=== PATIENT | female | born 1970 | race Caucasian/White ===

== ENCOUNTER 2020-08-15 19:00 | Inpatient (IN) ==
[2020-08-15] MEDS ORDERED: KETOROLAC TROMETHAMINE 15 MG/ML VIAL IV STA ×2 (19:54→22:01)
[2020-08-15] MEDS ORDERED: SODIUM CHLORIDE 0.9% 1000ML 1,000 ML IV ONE (19:54)
[2020-08-15 20:50] LABS: INR 1.1 (0.9-1.1); Partial Thromboplastin Time 25.6 Seconds (21.0-31.0); Prothrombin Time 11.1 Seconds (9.0-12.0)
[2020-08-15 20:57] LABS: Alanine Aminotransferase 12 U/L (12-78); Aspartate Aminotransferase 45 U/L (15-37); Blood Urea Nitrogen 4 mg/dl (7-18); Calcium 8.3 mg/dl (8.5-10.1); Carbon Dioxide 27 mmol/L (21-32); Chloride 102 mmol/L (98-107); Creatinine Clr Calc Pharmacy 91.5 ml/min; Est GFR (African American) 102.7; Est GFR (Non-African American) 88.6; Glucose 224 mg/dl (70-99); Lipase 133 U/L (73-393); Magnesium 1.7 mg/dl (1.8-2.4); Potassium 2.8 mmol/L (3.5-5.1); Sodium 136 mmol/L (136-145)
[2020-08-15 21:02] LABS: Albumin Globulin Ratio 0.5 (0.9-2); Alkaline Phosphatase 150 U/L (45-117); Globulin 5.6 gm/dl (2.5-4.0); Total Protein 8.6 gm/dl (6.4-8.2); Troponin I < 0.015 ng/ml (0-0.045)
[2020-08-15 21:37] LABS: Pregnancy Test, Serum Negative (Negative)
[2020-08-15 21:38] LABS: Hematocrit (blood only) 32.1 % (37-47); Hemoglobin 10.7 g/dL (12.0-16.0); Mean Corpuscular Hemoglobin 25.8 pg (25-34); Mean Corpuscular Hgb Conc 33.3 g/dL (32-36); Mean Corpuscular Volume 77.5 fL (80-100); Mean Platelet Volume 9.2 fL (7.4-10.4); Platelet Count 72 K/uL (130-400); RDW Coefficient of Variation 14.9 % (11.5-14.5); RDW Standard Deviation 42.5 fL (36.4-46.3); Red Blood Count 4.14 M/uL (4.2-5.4); White Blood Count 2.38 K/uL (4.8-10.8)
[2020-08-15 21:39] LABS: Lymphocytes % (auto) 29.4 %; Monocytes # (auto) 0.13 K/uL (0.11-0.59); Monocytes % (auto) 5.5 %; Neutrophils # (auto) 1.55 K/uL (1.4-6.5); Neutrophils % (auto) 65.1 %; Platelet Estimate Decreased (Normal)
[2020-08-15] MEDS ORDERED: OPTIRAY 320 125ml IV ONE (21:51)
[2020-08-15] MEDS ORDERED: POTASSIUM CHLORIDE CRTAB 20 MEQ TABCR PO STA (22:01)
[2020-08-15] MEDS ORDERED: MAGNESIUM SULFATE / D5W 1 GM/100 ML BAG IV STA (22:01)
--- NOTE | 2020-08-15 22:17 | Emergency Department Note ---
Impression & Plan COVID-19, Hypokalemia, Hypomagnesemia ED Provider Note Provider: Dominic Kellogg MD DATE OF SERVICE: 08/15/2020 CHIEF COMPLAINT: Shortness of breath, chest pain HISTORY OF PRESENT ILLNESS: Patient is a 50-year-old female presenting today complaining of cough fever shortness of breath little bit of chest discomfort decreased appetite nausea vomiting and diarrhea. Patient states symptoms sta rted 8 days ago and she was tested this past Thursday with a positive result reported to her on Thursday for coronavirus. Patient states her daughter is also ill but doing well at home. Patient states that she felt a bit better over the weekend from the initial URI type symptoms but got worse over the last day or so with again complaints of some chest discomfort shortness of breath, decreased appetite, nausea vomiting and diarrhea. States she has a little pain to the left side of her chest and some shortness of breath worse with exertion. Significant fatigue worse with any kind of activity.. Patient endorses nausea and vomiting and diarrhea. Reports she has been having some intermittent fe vers. Denies any syncope or falls. Has been wanting her pulse ox at home and states it has gotten as low as 92% resting. Patient denies significant abdominal pain but endorses some myalgias diffusely. Has intermittently been using some Motrin and Tylenol several days ago but has not been eating much so did not take much today. Patient states she is quite anxious about how she is doing and her infection. States she believes she got the coronavirus from her daughter's friend came to visit. Daughter is currently staying with friends tonight as patients here at the hospital. REVIEW OF SYSTEMS: A total of 10 review of systems was obtained and negative except as stated above in the HPI. PAST MEDICAL HISTORY: As noted above MEDICATIONS: Denies regular prescription medications at home SOCIAL HISTORY: Distant former smoker, lives at home with daughter PHYSICAL EXAM: GENERAL: alert and oriented sitting in room appears anxious Head: normocephalic and atraumatic EYES: No injection, discharge or icterus. NECK: Trachea midline. LUNGS: Airway patent. No retractions. Breath sounds clear with good air entry bilaterally. HEART: Regular tachycardic rate and rhythm. No chest wall tenderness ABDOMEN: Soft and non-tender, without guarding or rebound. SKIN: Acyanotic, warm, dry, without rashes EXTREMITIES: Without swelling, tenderness or deformity NEUROLOGICAL: No focal deficits. No aphasia. No facial droop or slurred speech. Ambulatory. EK beats minute sinus tachycardia. No PVC. No acute ST segment elevation. There is a lead III and aVF T wave inversion as well as some nonspecific anterior T wave changes. QTc 492. CONTINUOUS CARDIAC MONITORING: was ordered and showed a heart rate of 100-120 bpm in sinus tachycardia at times descending into the mid 90s and a normal sinus rhythm Patient's laboratory studies and imaging reviewed. Differential includes Reactive airway disease, pneumonia, pneumothorax, COPD, CHF, infections, cardiac ischemia, pulmonary embolism, musculoskeletal, gastrointestinal, as well as other pathologies. IMPRESSION/MEDICAL DECISION MAKING: Patient symptoms seem consistent with COVID-19. Imaging was obtained given her tachycardia and complaint of some chest discomfort proceed directly to a CTA to exclude PE. No evidence of this. The radiology report but infiltrative changes consistent with viral pneumonia. Laboratory studies also consistent with that with some thrombocytopenia, leukopenia noted. Hypokalemia and hypomagnesemia were interestingly noted today as well. Given some oral and IV supplementation of this. Given some Toradol to help with some chest discomfort as well as some IV fluid. Troponin is negative and EKG without significant ischemic changes and doubt acute ACS. negative. No evidence of acute hepatitis or pancreatitis based on laboratory studies. Benign abdomen do not believe any did acute imaging here. Patient not significant hypoxic here with sats in the mid 90s. Patient is quite anxious however and heart rates however in the 90s to 100s. Discussed with the patient findings. Do not believe antibiotics are indicated at this point. Discussed with her some supplementation for the electrolyte abnormalities and discussed options of going home with close observation of her symptoms. Extensive discussion regarding pros and cons of this and anticipatory guidance regarding course of COVID-19. After extensive discussion the patient was quite anxious and states she still felt quite unwell and unsafe going home. Patient states that she felt as if she would possibly not wake up if she went to sleep and requested further observation here at the hospital. Discussed with the hospitalist for possible further observation here in the hospital. DIAGNOSIS: COVID-19 pneumonia, chest pain, hypokalemia, hypomagnesemia DISPOSITION: Hospitalist will evaluate Patient was agreeable with this plan. Preliminary Findings Only See Final Report For Complete Findings CTA CHEST: No evidence of acute pulmonary embolism. No thoracic aortic aneurysm. No pericardial effusion. Widespread and patchy bilateral ground-glass infiltrates, likely viral pneumonia. No pleural effusion or pneumothorax. Hepatosplenomegaly. No acute osseous findings. Radiologist: Oracio Harris M.D. Study ready at 22:01 and initial results transmitted at 22:03 Past Med/Surg History Social History (System 07/07/18 @ 13:26 by Alana Clark) Smoking Status: Never smoker Feels Safe at Home: Yes Allergies Allergies Allergy/AdvReac Type Severity Reaction Status Date / Time No Known Allergies Allergy Verified 08/15/20 23:57 Home Meds Home Medications Medication Instructions Recorded Confirmed azithromycin 250 mg PO DIRECTED 08/15/20 08/15/20 ibuprofen 400 mg PO Q6H PRN 08/15/20 08/15/20 Results & Data (ED) Vital Signs Vital Signs - 24 hr 08/15/20 19:09 08/15/20 19:48 08/15/20 20:21 Temperature 37.1 C Temperature Source Temporal Artery Scan Pulse Rate 112 H 107 H 105 H Pulse Rate [Apical] Pulse Rate from SpO2 Sensor 107 H 105 H Respiratory Rate 18 17 19 Respiratory Effort / Characteristics Respiratory Depth Normal Respiratory Pattern Blood Pressure 147/83 H 153/80 H 146/92 H Blood Pressure Mean 104 104 110 Blood Pressure Position Lying Pulse Oximetry 94 95 95 Oxygen Delivery Method Room Air Room Air Room Air Sepsis Recent Fever Within 48 Hours No Sepsis New/Unexplained Change in Mental Status No Sepsis Action Taken by Nursing No Action Required 08/15/20 20:26 08/15/20 20:47 08/15/20 21:00 Temperature Temperature Source Pulse Rate 103 H Pulse Rate [Apical] 101 H Pulse Rate from SpO2 Sensor 104 H Respiratory Rate 14 23 Respiratory Effort / Characteristics Non-Labored Spontaneous Respiratory Depth Normal Respiratory Pattern Regular Blood Pressure 136/72 Blood Pressure Mean 93 Blood Pressure Position Pulse Oximetry 95 96 96 Oxygen Delivery Method Room Air Room Air Room Air Sepsis Recent Fever Within 48 Hours Sepsis New/Unexplained Change in Mental Status Sepsis Action Taken by Nursing 08/15/20 22:15 08/15/20 23:00 08/16/20 00:00 Temperature Temperature Source Pulse Rate 96 H 96 H 95 H Pulse Rate [Apical] Pulse Rate from SpO2 Sensor 96 H 96 H 95 H Respiratory Rate 23 18 19 Respiratory Effort / Characteristics Respiratory Depth Respiratory Pattern Blood Pressure 114/89 108/87 123/72 Blood Pressure Mean 97 94 89 Blood Pressure Position Pulse Oximetry 97 94 94 Oxygen Delivery Method Room Air Room Air Room Air Sepsis Recent Fever Within 48 Hours Sepsis New/Unexplained Change in Mental Status Sepsis Action Taken by Nursing Laboratory Data Result diagrams: 08/15/20 21:05 08/15/20 20:26 Lab Results 08/15/20 08/15/20 08/15/20 Range/Units 20:26 20:26 20:26 WBC Cancelled RBC Cancelled Hgb Cancelled Hct Cancelled MCV Cancelled MCH Cancelled MCHC Cancelled RDW Std Deviation Cancelled RDW Coeff of Radha Cancelled Plt Count Cancelled MPV Cancelled Immature Gran % (Auto) Cancelled Neut % (Auto) Cancelled Lymph % (Auto) Cancelled [place] % (Auto) Cancelled Eos % (Auto) Cancelled Baso % (Auto) Cancelled Neut # (Auto) Cancelled Lymph # (Auto) Cancelled [place] # (Auto) Cancelled Eos # (Auto) Cancelled Baso # (Auto) Cancelled Immature Gran # (Auto) Cancelled Absolute Nucleated RBC Cancelled Nucleated RBC % (auto) Cancelled Neutrophils % (Manual) Cancelled Band Neutrophils % Cancelled Lymphocytes % (Manual) Cancelled Prolymphocyte % Cancelled Reactive Lymphs % (Man) Cancelled Monocytes % (Manual) Cancelled Eosinophils % (Manual) Cancelled Basophils % (Manual) Cancelled Metamyelocytes % (Man) Cancelled Myelocytes % (Man) Cancelled Promyelocytes % (Man) Cancelled Blast Cells % (Manual) Cancelled Plasma Cell % (Manual) Cancelled Other Cells % Cancelled Nucleated RBC % Cancelled Neutrophils # (Manual) Cancelled Band Neutrophils # Cancelled Total Absolute Neuts Cancelled Lymphocytes # (Manual) Cancelled Prolymphocyte # Cancelled Reactive Lymphs # Cancelled Total Abs Lymphocytes Cancelled Monocytes # (Manual) Cancelled Eosinophils # (Manual) Cancelled Basophils # (Manual) Cancelled Metamyelocytes # (Man) Cancelled Myelocytes # (Manual) Cancelled Promyelocytes # (Man) Cancelled Blast Cells # (Man) Cancelled Plasma Cell # (Manual) Cancelled Other Cells # Cancelled Nucleated RBCs # (Man) Cancelled Hypersegmented Neuts Cancelled Hyposegmented Neuts Cancelled Hypogranular Neuts Cancelled Large Granular Lymphs Cancelled # Lrg Granular Lymphs Cancelled Hairy Cells Cancelled Smudge Cells Cancelled Toxic Granulation Cancelled Toxic Vacuolation Cancelled Dohle Bodies Cancelled Kavitha Rods Cancelled Platelet Estimate Cancelled Hypogranular Platelets Cancelled Clumped Platelets Cancelled Giant Platelets Cancelled Platelet Satelliting Cancelled RBC Morphology Cancelled Polychromasia Cancelled Hypochromasia Cancelled Poikilocytosis Cancelled Basophilic Stippling Cancelled Anisocytosis Cancelled Microcytosis Cancelled Macrocytosis Cancelled Spherocytes Cancelled Pappenheimer Bodies Cancelled Sickle Cells Cancelled Target Cells Cancelled Tear Drop Cells Cancelled Ovalocytes Cancelled Stomatocytes Cancelled Bermudez-Lincroft Bodies Cancelled Echinocytes Cancelled Acanthocytes (Spur) Cancelled Rouleaux Cancelled RBC Agglutinates Cancelled Schistocytes Cancelled RBC Morph Comment Cancelled Sezary Cell Cancelled PT 11.1 (9.0-12.0) Seconds INR 1.1 (0.9-1.1) APTT 25.6 (21.0-31.0) Seconds PTT Ratio 1.0 Sodium 136 (136-145) mmol/L Potassium 2.8 L (3.5-5.1) mmol/L Chloride 102 (98-107) mmol/L Carbon Dioxide 27 (21-32) mmol/L Anion Gap 7.0 (3-11) BUN 4 L (7-18) mg/dl Creatinine 0.78 (0.6-1.2) mg/dl Est Cr Clr Drug Dosing 91.5 ml/min Est GFR ( Amer) 102.7 Est GFR (Non-Af Amer) 88.6 BUN/Creatinine Ratio 5.0 L (10-20) Glucose 224 H (70-99) mg/dl Calcium 8.3 L (8.5-10.1) mg/dl Magnesium 1.7 L (1.8-2.4) mg/dl Total Bilirubin 1.0 (0.2-1) mg/dl AST 45 H (15-37) U/L ALT 12 (12-78) U/L Alkaline Phosphatase 150 H (45-117) U/L Troponin I < 0.015 (0-0.045) ng/ml Total Protein 8.6 H (6.4-8.2) gm/dl Albumin 3.0 L (3.4-5.0) gm/dl Globulin 5.6 H (2.5-4.0) gm/dl Albumin/Globulin Ratio 0.5 L (0.9-2) Lipase 133 (73-393) U/L HCG, Qual (Negative) 08/15/20 08/15/20 Range/Units 21:05 21:05 WBC 2.38 L RBC 4.14 L Hgb 10.7 L Hct 32.1 L MCV 77.5 L MCH 25.8 MCHC 33.3 RDW Std Deviation 42.5 RDW Coeff of Radha 14.9 H Plt Count 72 L MPV 9.2 Immature Gran % (Auto) 0.0 Neut % (Auto) 65.1 Lymph % (Auto) 29.4 [place] % (Auto) 5.5 Eos % (Auto) 0.0 Baso % (Auto) 0.0 Neut # (Auto) 1.55 Lymph # (Auto) 0.70 L [place] # (Auto) 0.13 Eos # (Auto) 0.00 Baso # (Auto) 0.00 Immature Gran # (Auto) 0.00 Absolute Nucleated RBC Nucleated RBC % (auto) Neutrophils % (Manual) Band Neutrophils % Lymphocytes % (Manual) Prolymphocyte % Reactive Lymphs % (Man) Monocytes % (Manual) Eosinophils % (Manual) Basophils % (Manual) Metamyelocytes % (Man) Myelocytes % (Man) Promyelocytes % (Man) Blast Cells % (Manual) Plasma Cell % (Manual) Other Cells % Nucleated RBC % Neutrophils # (Manual) Band Neutrophils # Total Absolute Neuts Lymphocytes # (Manual) Prolymphocyte # Reactive Lymphs # Total Abs Lymphocytes Monocytes # (Manual) Eosinophils # (Manual) Basophils # (Manual) Metamyelocytes # (Man) Myelocytes # (Manual) Promyelocytes # (Man) Blast Cells # (Man) Plasma Cell # (Manual) Other Cells # Nucleated RBCs # (Man) Hypersegmented Neuts Hyposegmented Neuts Hypogranular Neuts Large Granular Lymphs # Lrg Granular Lymphs Hairy Cells Smudge Cells Toxic Granulation Toxic Vacuolation Dohle Bodies Kavitha Rods Platelet Estimate Decreased L Hypogranular Platelets Clumped Platelets Giant Platelets Platelet Satelliting RBC Morphology Polychromasia Hypochromasia Poikilocytosis Basophilic Stippling Anisocytosis Microcytosis Macrocytosis Spherocytes Pappenheimer Bodies Sickle Cells Target Cells Tear Drop Cells Ovalocytes Stomatocytes Bermudez-Lincroft Bodies Echinocytes Acanthocytes (Spur) Rouleaux RBC Agglutinates Schistocytes RBC Morph Comment Sezary Cell PT (9.0-12.0) Seconds INR (0.9-1.1) APTT (21.0-31.0) Seconds PTT Ratio Sodium (136-145) mmol/L Potassium (3.5-5.1) mmol/L Chloride (98-107) mmol/L Carbon Dioxide (21-32) mmol/L Anion Gap (3-11) BUN (7-18) mg/dl Creatinine (0.6-1.2) mg/dl Est Cr Clr Drug Dosing ml/min Est GFR ( Amer) Est GFR (Non-Af Amer) BUN/Creatinine Ratio (10-20) Glucose (70-99) mg/dl Calcium (8.5-10.1) mg/dl Magnesium (1.8-2.4) mg/dl Total Bilirubin (0.2-1) mg/dl AST (15-37) U/L ALT (12-78) U/L Alkaline Phosphatase (45-117) U/L Troponin I (0-0.045) ng/ml Total Protein (6.4-8.2) gm/dl Albumin (3.4-5.0) gm/dl Globulin (2.5-4.0) gm/dl Albumin/Globulin Ratio (0.9-2) Lipase (73-393) U/L HCG, Qual Negative (Negative) Administered Medications Discontinued Medications Diphenhydramine HCl (Diphenhydramine 50 Mg/Ml Vial) 25 mg IV NOW STA Stop: 08/15/20 22:51 Last Admin: 08/15/20 23:12 Dose: 25 mg Documented by: [id number] Sodium Chloride (Nss 1000ml) 1,000 mls @ 999 mls/hr IV .Q1H1M ONE Stop: 08/15/20 20:54 Last Infusion: 08/15/20 21:18 Dose: 0 mls/hr Documented by: [id number] Admin: 08/15/20 20:21 Dose: 999 mls/hr Documented by: [id number] Magnesium Sulfate/Dextrose (Magnesium Sulfate / D5w) 1 gm in 100 mls @ 100 mls/hr IV NOW STA Stop: 08/15/20 23:00 Last Infusion: 08/15/20 23:19 Dose: 0 mls/hr Documented by: [id number] Admin: 08/15/20 22:09 Dose: 100 mls/hr Documented by: [id number] Potassium Chloride (K Tony / Wtr) 10 meq in 100 mls @ 100 mls/hr IV ONE ONE Stop: 08/15/20 23:46 Last Admin: 08/15/20 23:13 Dose: 100 mls/hr Documented by: [id number] Sodium Chloride (Nss 1000ml) 500 mls @ 999 mls/hr IV .Q31M ONE Stop: 08/15/20 23:17 Last Admin: 08/15/20 23:15 Dose: 999 mls/hr Documented by: [id number] Famotidine (Pepcid 20mg Iv Push) 20 mg in 5 mls @ 2.5 mls/min IV NOW STA Stop: 08/15/20 22:51 Last Admin: 08/15/20 23:12 Dose: 2.5 mls/min Documented by: [id number] Ioversol (Optiray 320 125ml) 119 ml IV ONCE ONE Stop: 08/15/20 21:52 Last Admin: 08/15/20 21:52 Dose: 119 ml Documented by: [id number] Ketorolac Tromethamine (Ketorolac Tromethamine 15 Mg/Ml Vial) 15 mg IV NOW STA Stop: 08/15/20 19:55 Last Admin: 08/15/20 20:22 Dose: 15 mg Documented by: [id number] Ketorolac Tromethamine (Ketorolac Tromethamine 15 Mg/Ml Vial) 15 mg IV NOW STA Stop: 08/15/20 22:02 Last Admin: 08/15/20 22:10 Dose: 15 mg Documented by: [id number] Ondansetron HCl (Ondansetron Inj 2 Mg/Ml 2 Ml Vial) 4 mg IV NOW STA Stop: 08/15/20 22:48 Last Admin: 08/15/20 23:12 Dose: 4 mg Documented by: [id number] Potassium Chloride (Potassium Chloride Crtab 20 Meq Tabcr) 40 meq PO NOW STA Stop: 08/15/20 22:02 Last Admin: 08/15/20 22:09 Dose: 40 meq Documented by: [id number] Discharge Plan Visit Data Chief Complaint: Shortness of Breath/Dyspnea Stated Complaint: SOB, COV + 08/10 ED Provider: Dominic Kellogg Discharge Problem: COVID-19, Hypokalemia, Hypomagnesemia Forms Stand Alone Forms: [facility] Prescriptions Prescriptions: No Action azithromycin 250 mg tablet 250 mg PO DIRECTED RF: 0 ibuprofen 200 mg Tablet 400 mg PO Q6H PRN (Reason: FEVER/PAIN) RF: 0
[2020-08-15] MEDS ORDERED: SODIUM CHLORIDE 0.9% 1000ML 500 ML IV ONE (22:47)
[2020-08-15] MEDS ORDERED: ONDANSETRON INJ 2 MG/ML 2 ML VIAL IV STA (22:47)
[2020-08-15] MEDS ORDERED: POTASSIUM CHLORIDE / WTR 10 MEQ/100 ML PLCT IV ONE (22:47)
[2020-08-15] MEDS ORDERED: FAMOTIDINE 20MG IV PUSH 20 MG/5 ML SYR IV STA (22:50)
[2020-08-15] MEDS ORDERED: diphenhydrAMINE 50 MG/ML VIAL IV STA (22:50)
--- NOTE | 2020-08-16 00:58 | History & Physical Report ---
Date of Service August 16, 2020 Assessment & Plan (1) COVID-19: Patient on day 8 of symptoms. Was diagnosed 5 days ago. States her symptoms improved then began to worsen again 2 days ago. She has cough and SOB as well as nausea and diarrhea. No loss of taste or smell. Labs significant for pancytopenia, leukopenia as well as electrolyte disturbances as below. She is not hypoxic, no supplemental O2 at this time. -Observation to medical -Check Procalcitonin -Maintain isolation precautions -Monitor oxygenation. No need for steroid treatment at this time. Patient is on day 8 of symptoms and would not benefit from Remdesivir or plasma at this time -Lovenox 40 BID Present on Admission?: Yes (2) Hypokalemia: K=2.8. Given 50mEq in ER -Will give 40 mEq -Repeat chemistry in AM Present on Admission?: Yes (3) Hypomagnesemia: Mg = 1.7. Administered 1gm in ER -Will administer additional 1gm -Repeat Mg in AM Present on Admission?: Yes (4) Pancytopenia: Patient with pancytopenia, Plt=72. No prior records for comparison. ?if secondary to Covid-19 viral illness. She also has HSM noted on CT -Follow CBC -No additional viral tests at this time. Continue to follow Present on Admission?: Yes (5) Hyperglycemia: Vok=578. No diagnosis of DM previously. Patient denies polyuria/polydipsia/polyphagia -Check HgBA1C -BSG checks qAC, qHS F/E/N - IVF in ER. Electrolytes as above. CC diet as tolerated Ppx - Lovenox BID Code - Full Dispo - Observation to medical with isolation precautions Present on Admission?: Yes History of Present Illness Chief Complaint: SOB Primary Care Provider: HUSSAIN Ronquillo 50yo female with Covid-19. Sx began 8 days ago - body aches, dry cough, SOB, nausea and diarrhea. Improved but started worsening again 2 days ago Some CP and abdominal pain No loss of taste or smell Concerned because her pulse ox at home was 92% Pulse ox has been acceptable here No additional complaints. She is quite anxious, concerned that she "is going to tonight" Allergies Allergy/AdvReac Type Severity Reaction Status Date / Time No Known Allergies Allergy Verified 08/15/20 23:57 Home Medications Medication Instructions Recorded Confirmed Type azithromycin 250 mg PO DIRECTED 08/15/20 08/15/20 History ibuprofen 400 mg PO Q6H PRN 08/15/20 08/15/20 History Past Med/Surg History Medical History (Updated 08/16/20 @ 01:12 by Sharon Owens DO) No significant past medical history Surgical History (Updated 08/16/20 @ 01:12 by Sharon Owens DO) No significant past surgical history Family History (Updated 08/16/20 @ 01:11 by Sharon Owens DO) Other No significant family history Social History (Updated 08/16/20 @ 01:11 by Sharon Owens DO) Smoking Status: Never smoker Hx Alcohol Use: No Hx Substance Use: No Feels Safe at Home: Yes Physical Exam Physical Exam: General: patient resting comfortably, NAD, non-toxic in appearance, AA&O x 4 Skin: warm, dry, intact, no rashes or lesions HEENT: NC/AT, PERRL, EOMI, anicteric sclera, conjunctiva without injection, external ear normal to inspection and nontender, nares patent, slightly dry mucus membranes, dentition intact, no oropharyngeal lesions, neck supple, tra jh midline, no LAD, no thyromegaly, no JVD Heart: +S1/S2, regular, no m/r/g Abd: +BS, soft, mildly tender, ND, no masses/organomegaly/ascites Ext: warm, 2+ pulses in UE/LE bilaterally, no clubbing/cyanosis or edema Neuro: nonfocal, patient AA&O x 4, speech intact, no facial droop, moving all extremities on command with equal strength 5/5 Results & Data Results & Data ([facility]) Vital Signs (Past 12 Hours) Vital Signs Temp Pulse Pulse Resp BP Pulse Ox 08/16/20 00:00 95 H 19 123/72 94 08/15/20 23:00 96 H 18 108/87 94 08/15/20 22:15 96 H 23 114/89 97 08/15/20 21:00 103 H 23 136/72 96 08/15/20 20:47 101 H 14 96 08/15/20 20:26 95 08/15/20 20:21 105 H 19 146/92 H 95 08/15/20 19:48 107 H 17 153/80 H 95 08/15/20 19:09 37.1 C 112 H 18 147/83 H 94 Laboratory Results Lab Results 08/15/20 08/15/20 08/15/20 Range/Units 20:26 20:26 20:26 WBC Cancelled RBC Cancelled Hgb Cancelled Hct Cancelled MCV Cancelled MCH Cancelled MCHC Cancelled RDW Std Deviation Cancelled RDW Coeff of Radha Cancelled Plt Count Cancelled MPV Cancelled Immature Gran % (Auto) Cancelled Neut % (Auto) Cancelled Lymph % (Auto) Cancelled [place] % (Auto) Cancelled Eos % (Auto) Cancelled Baso % (Auto) Cancelled Neut # (Auto) Cancelled Lymph # (Auto) Cancelled [place] # (Auto) Cancelled Eos # (Auto) Cancelled Baso # (Auto) Cancelled Immature Gran # (Auto) Cancelled Absolute Nucleated RBC Cancelled Nucleated RBC % (auto) Cancelled Neutrophils % (Manual) Cancelled Band Neutrophils % Cancelled Lymphocytes % (Manual) Cancelled Prolymphocyte % Cancelled Reactive Lymphs % (Man) Cancelled Monocytes % (Manual) Cancelled Eosinophils % (Manual) Cancelled Basophils % (Manual) Cancelled Metamyelocytes % (Man) Cancelled Myelocytes % (Man) Cancelled Promyelocytes % (Man) Cancelled Blast Cells % (Manual) Cancelled Plasma Cell % (Manual) Cancelled Other Cells % Cancelled Nucleated RBC % Cancelled Neutrophils # (Manual) Cancelled Band Neutrophils # Cancelled Total Absolute Neuts Cancelled Lymphocytes # (Manual) Cancelled Prolymphocyte # Cancelled Reactive Lymphs # Cancelled Total Abs Lymphocytes Cancelled Monocytes # (Manual) Cancelled Eosinophils # (Manual) Cancelled Basophils # (Manual) Cancelled Metamyelocytes # (Man) Cancelled Myelocytes # (Manual) Cancelled Promyelocytes # (Man) Cancelled Blast Cells # (Man) Cancelled Plasma Cell # (Manual) Cancelled Other Cells # Cancelled Nucleated RBCs # (Man) Cancelled Hypersegmented Neuts Cancelled Hyposegmented Neuts Cancelled Hypogranular Neuts Cancelled Large Granular Lymphs Cancelled # Lrg Granular Lymphs Cancelled Hairy Cells Cancelled Smudge Cells Cancelled Toxic Granulation Cancelled Toxic Vacuolation Cancelled Dohle Bodies Cancelled Kavitha Rods Cancelled Platelet Estimate Cancelled Hypogranular Platelets Cancelled Clumped Platelets Cancelled Giant Platelets Cancelled Platelet Satelliting Cancelled RBC Morphology Cancelled Polychromasia Cancelled Hypochromasia Cancelled Poikilocytosis Cancelled Basophilic Stippling Cancelled Anisocytosis Cancelled Microcytosis Cancelled Macrocytosis Cancelled Spherocytes Cancelled Pappenheimer Bodies Cancelled Sickle Cells Cancelled Target Cells Cancelled Tear Drop Cells Cancelled Ovalocytes Cancelled Stomatocytes Cancelled Bermudez-Alamillo Bodies Cancelled Echinocytes Cancelled Acanthocytes (Spur) Cancelled Rouleaux Cancelled RBC Agglutinates Cancelled Schistocytes Cancelled RBC Morph Comment Cancelled Sezary Cell Cancelled PT 11.1 (9.0-12.0) Seconds INR 1.1 (0.9-1.1) APTT 25.6 (21.0-31.0) Seconds PTT Ratio 1.0 Sodium 136 (136-145) mmol/L Potassium 2.8 L (3.5-5.1) mmol/L Chloride 102 (98-107) mmol/L Carbon Dioxide 27 (21-32) mmol/L Anion Gap 7.0 (3-11) BUN 4 L (7-18) mg/dl Creatinine 0.78 (0.6-1.2) mg/dl Est Cr Clr Drug Dosing 91.5 ml/min Est GFR ( Amer) 102.7 Est GFR (Non-Af Amer) 88.6 BUN/Creatinine Ratio 5.0 L (10-20) Glucose 224 H (70-99) mg/dl Calcium 8.3 L (8.5-10.1) mg/dl Magnesium 1.7 L (1.8-2.4) mg/dl Total Bilirubin 1.0 (0.2-1) mg/dl AST 45 H (15-37) U/L ALT 12 (12-78) U/L Alkaline Phosphatase 150 H (45-117) U/L Troponin I < 0.015 (0-0.045) ng/ml Total Protein 8.6 H (6.4-8.2) gm/dl Albumin 3.0 L (3.4-5.0) gm/dl Globulin 5.6 H (2.5-4.0) gm/dl Albumin/Globulin Ratio 0.5 L (0.9-2) Lipase 133 (73-393) U/L HCG, Qual (Negative) 08/15/20 08/15/20 Range/Units 21:05 21:05 WBC 2.38 L RBC 4.14 L Hgb 10.7 L Hct 32.1 L MCV 77.5 L MCH 25.8 MCHC 33.3 RDW Std Deviation 42.5 RDW Coeff of Radha 14.9 H Plt Count 72 L MPV 9.2 Immature Gran % (Auto) 0.0 Neut % (Auto) 65.1 Lymph % (Auto) 29.4 [place] % (Auto) 5.5 Eos % (Auto) 0.0 Baso % (Auto) 0.0 Neut # (Auto) 1.55 Lymph # (Auto) 0.70 L [place] # (Auto) 0.13 Eos # (Auto) 0.00 Baso # (Auto) 0.00 Immature Gran # (Auto) 0.00 Absolute Nucleated RBC Nucleated RBC % (auto) Neutrophils % (Manual) Band Neutrophils % Lymphocytes % (Manual) Prolymphocyte % Reactive Lymphs % (Man) Monocytes % (Manual) Eosinophils % (Manual) Basophils % (Manual) Metamyelocytes % (Man) Myelocytes % (Man) Promyelocytes % (Man) Blast Cells % (Manual) Plasma Cell % (Manual) Other Cells % Nucleated RBC % Neutrophils # (Manual) Band Neutrophils # Total Absolute Neuts Lymphocytes # (Manual) Prolymphocyte # Reactive Lymphs # Total Abs Lymphocytes Monocytes # (Manual) Eosinophils # (Manual) Basophils # (Manual) Metamyelocytes # (Man) Myelocytes # (Manual) Promyelocytes # (Man) Blast Cells # (Man) Plasma Cell # (Manual) Other Cells # Nucleated RBCs # (Man) Hypersegmented Neuts Hyposegmented Neuts Hypogranular Neuts Large Granular Lymphs # Lrg Granular Lymphs Hairy Cells Smudge Cells Toxic Granulation Toxic Vacuolation Dohle Bodies Kavitha Rods Platelet Estimate Decreased L Hypogranular Platelets Clumped Platelets Giant Platelets Platelet Satelliting RBC Morphology Polychromasia Hypochromasia Poikilocytosis Basophilic Stippling Anisocytosis Microcytosis Macrocytosis Spherocytes Pappenheimer Bodies Sickle Cells Target Cells Tear Drop Cells Ovalocytes Stomatocytes Bermudez-Alamillo Bodies Echinocytes Acanthocytes (Spur) Rouleaux RBC Agglutinates Schistocytes RBC Morph Comment Sezary Cell PT (9.0-12.0) Seconds INR (0.9-1.1) APTT (21.0-31.0) Seconds PTT Ratio Sodium (136-145) mmol/L Potassium (3.5-5.1) mmol/L Chloride (98-107) mmol/L Carbon Dioxide (21-32) mmol/L Anion Gap (3-11) BUN (7-18) mg/dl Creatinine (0.6-1.2) mg/dl Est Cr Clr Drug Dosing ml/min Est GFR ( Amer) Est GFR (Non-Af Amer) BUN/Creatinine Ratio (10-20) Glucose (70-99) mg/dl Calcium (8.5-10.1) mg/dl Magnesium (1.8-2.4) mg/dl Total Bilirubin (0.2-1) mg/dl AST (15-37) U/L ALT (12-78) U/L Alkaline Phosphatase (45-117) U/L Troponin I (0-0.045) ng/ml Total Protein (6.4-8.2) gm/dl Albumin (3.4-5.0) gm/dl Globulin (2.5-4.0) gm/dl Albumin/Globulin Ratio (0.9-2) Lipase (73-393) U/L HCG, Qual Negative (Negative) Diagnostic Findings CTA - No evidence of acute PE. No thoracic aortic aneurysm. No pericardial effusion. Widespread and patchy bilateral ground-glass infiltrates, likely viral PNA. No pleural efffusion or PTX. Hepatosplenomegaly. No acute osseous findings. Code Status & VTE Plan VTE Prophylaxis Plan VTE Prophylaxis will be ordered: Yes PG Care Time/CCT Total # of Minutes Spent Total Time Spent with Patient: Total time spent is greater than 50% in coordination of care (as documented) at patient's floor/unit and/or counseling patient: Coding Level of Care Code 80904 OBS Care - Level 2 Diagnoses COVID-19 U07.1 Hypokalemia E87.6 Hypomagnesemia E83.42 Pancytopenia D61.818 Hyperglycemia R73.9
[2020-08-16] MEDS ORDERED: GLUCOSE 10 TABS/TUBE PO PRN (02:20)
[2020-08-16] MEDS ORDERED: GLUCAGON FOR INJ 1 MG VIAL SQ PRN (02:20)
[2020-08-16] MEDS ORDERED: GLUCOSE 40% GEL 15 GM TUBE PO PRN (02:20)
[2020-08-16] MEDS ORDERED: POTASSIUM CHLORIDE CRTAB 20 MEQ TABCR PO STA (02:20)
[2020-08-16] MEDS ORDERED: CARBOHYDRATES FOR HYPOGLYCEMIA PO PRN (02:20)
[2020-08-16] MEDS ORDERED: DEXTROSE 50% 50 ML SYRINGE IV PRN (02:20)
[2020-08-16] MEDS ORDERED: MAGNESIUM SULFATE / D5W 1 GM/100 ML BAG IV ONE (02:20)
[2020-08-16] MEDS ORDERED: INFLUENZA ADMINISTRATION CHARGE ONE (02:36)
[2020-08-16] MEDS ORDERED: INFLUENZA VIRUS QUAD VACCINE 0.5 ML SYR IM ONE (02:36)
[2020-08-16 03:20] LABS: Appearance Urine Clear (Clear); Bacteria Urine Automated Negative (Negative); Bilirubin Urine Negative (Negative); Blood Urine 3+ (Negative); Color Urine Orange; Epithelial Cell Urine Auto >30 /lpf (0-5); Glucose Urine UA Negative (Negative); Ketones Urine Negative (Negative); Leukocyte Esterase Urine Trace (Negative); Nitrite Urine Negative (Negative); Protein Urine Trace (Negative); RBC Urine Automated >30 /hpf (0-4); Specific Gravity Urine > 1.045 (1.000-1.030); Urobilinogen Urine Negative (Negative); pH Urine 6.5 (4.5-7.5)
[2020-08-16 03:52] LABS: Phosphorus 1.6 mg/dl (2.5-4.9)
--- NOTE | 2020-08-16 07:49 | CT Scan Report ---
CHEST CTA for PULMONARY ARTERIES CT DOSE: 548.44 mGy.cm HISTORY: Positive Covid. Shortness of breath. Atypical chest pain. TECHNIQUE: Multiaxial CT images of the chest were performed following the intravenous administration of contrast to evaluate the pulmonary arteries. Maximal intensity projection images were also obtaine d. A dose lowering technique was utilized adhering to the principles of ALARA. COMPARISON STUDY: None. FINDINGS: Normal caliber thoracic aorta with no evidence for dissection. The heart is normal in size. No pleural or pericardial effusions. No filling defects within the pulmonary arteries to suggest pul monary embolus. Mild mediastinal and bilateral hilar lymphadenopathy. This may be reactive. Hepatic s teatosis. Hepatosplenomegaly. This is partially imaged on this study. No fractures within the visuali zed osseous structures. No pneumothorax. The central airways are patent. Scattered multifocal patchy groundglass airspace opacity seen throughout the lungs. This is consistent with a moderate viral pneu monia. IMPRESSION: 1. No evidence for pulmonary embolus. 2. Moderate multifocal patchy groundglass airspace opacities seen throughout the lungs. This favors a viral pneumonia. 3. Mild hepatosplenomegaly. 4. Hepatic steatosis. 5. Mild mediastinal and bilateral hilar lymphadenopathy. This is likely reactive. ACT 112: Negative or not required by law. Electronically signed by: Timmy Morales M.D. 08/16/2020 7:47 AM
[2020-08-16 08:10] LABS: Magnesium 2.4 mg/dl (1.8-2.4)
[2020-08-16] MEDS: ENOXAPARIN INJ 40 MG/0.4 ML SYR SQ SCH ×2 (08:42→20:21)
[2020-08-16 08:50] LABS: Estimated Average Glucose 269 mg/dl
[2020-08-16] MEDS: BENZONATATE 100 MG CAPSULE PO PRN (09:20)
[2020-08-16] MEDS: ACETAMINOPHEN 325 MG TAB PO PRN ×3 (09:20→20:13)
[2020-08-16 12:17] LABS: Albumin Level 2.7 gm/dl (3.4-5.0); BUN Creatinine Ratio 7.2 (10-20); Bilirubin Direct 0.3 mg/dl (0-0.2); Calcium 7.6 mg/dl (8.5-10.1); Creatinine Clr Calc Pharmacy 111.5 ml/min; Est GFR (African American) 120.6; Est GFR (Non-African American) 104.1
[2020-08-16 12:20] LABS: Bilirubin,Total 0.9 mg/dl (0.2-1); Total Protein 7.9 gm/dl (6.4-8.2)
[2020-08-16] MEDS ORDERED: INSULIN GLARGINE SOLOSTAR 100 UNITS/ML 3 ML PEN SC ONE (14:00)
[2020-08-16] MEDS: POTASSIUM CHLORIDE CRTAB 20 MEQ TABCR PO SCH ×2 (14:54→20:21)
--- NOTE | 2020-08-16 16:48 | Electrocardiogram Report ---
Test Reason : Blood Pressure : / mmHG Vent. Rate : 109 BPM Atrial Rate : 109 BPM P-R Int : 138 ms QRS Dur : 082 ms QT Int : 366 ms P-R-T Axes : 046 035 003 degrees QTc Int : 492 ms Sinus tachycardia Abnormal ECG No previous ECGs available Confirmed by Eladio Olmos ([id number]) on 08/16/2020 4:48:03 PM Referred By: REFERRED SELF Confirmed By:Shaun Olmos
[2020-08-16] MEDS: INSULIN ASPART 100 UNITS/ML 3 ML PEN SC SCH ×2 (17:54→21:32)
[2020-08-16] MEDS: NSS + 20MEQ KCL 20 MEQ/1,000 ML BAG IV SCH (18:00)
[2020-08-16] MEDS: POT PHOSPHATE MONOBASIC W/ SOD TAB PO SCH ×2 (18:04→20:15)
[2020-08-16] MEDS: busPIRone 5 MG TAB PO PRN (23:42)
[2020-08-16] MEDS: guaiFENesin 600 MG TABCR PO PRN (23:42)
[2020-08-17] MEDS: ACETAMINOPHEN 325 MG TAB PO PRN ×3 (00:21→13:13)
[2020-08-17] MEDS: NSS + 20MEQ KCL 20 MEQ/1,000 ML BAG IV SCH ×3 (02:17→20:22)
--- NOTE | 2020-08-17 06:24 | Hospitalist Progress Note ---
Date of Service August 16, 2020 Assessment & Plan (1) Pneumonia due to 2019 novel coronavirus: thus far is NOT hypoxic/requiring NC O2. deferring on steroids/plasma/remdesivir. continue aggressive pulmonary toilet. flutter valve/incentive nichole. self-proning encouraged. low threshold for steroids with any clinical worsening or hypoxia. (2) Pancytopenia: 2nd to COVID-19 infection? other? check TSH, b12, folate to be complete. underlying liver disease should be considered if LFT abnormalities and pancytopenia persist. no evidence of myeloproliferative disease based on imaging. daily CBC. (3) Hypomagnesemia: replaced and resolved (4) Hypokalemia: replace with PO and IV K bmp am (5) Diabetes mellitus type 2, uncontrolled: new diagnosis nutrition consult DM education consult start lantus 15 units daily start novolog supplemental/correction/carb coverage adjust as needed (6) Hypophosphatemia: replace with oral K-phos neutral (7) Anxiety: buspar prn (8) Hepatosplenomegaly: could be 2nd to COVID-19 infection could be primary liver disease ultimately will need dedicated abd u/s trend her LFTs (9) DVT prophylaxis: due to higher risk of VTE with COVID use lovenox 40mg BID father updated by phone today change to full admission status not eating/drinking - add IV fluids Admission and Anticipated Discharge Date Admission Date: August 16, 2020 Subjective patient continues with cough - mainly dry, occasional production. diarrhea persists. no vomiting. some nausea. appetite remains poor. she is thirsty. did have chest tightness - improved since laying on her side. no abd pain. h/o pre-DM dx 2-3 years ago but no f/u with PCP since then. no fevers. fatigue is severe. 13yo daughter had COVID at same time as her. Review of Systems Constitutional: + fatigue, + weakness and + anorexia; no fever Respiratory: no dyspnea Cardiovascular: no chest pain and no edema Gastrointestinal: no abdominal pain Musculoskeletal: no myalgia Psychiatric: + anxiety Physical Exam Constitutional: + obese; no acute distress and no altered mental status ENMT: Mouth: + dry oral mucous membranes Respiratory: no respiratory distress Auscultation: + diminished lung sounds (bases) and + crackles (bases) Cardiovascular: Rate/Rhythm: regular rate and regular rhythm Heart Sounds: normal S1 and normal S2; no murmur Vessels: posterior tibial pulses present and dorsalis pedis pulses present; no JVD Extremities: no edema Gastrointestinal (Abdomen): Percussion/Palpation: abdomen soft and + hepatomegaly; abdomen nontender, no guarding and no splenomegaly Skin: no rashes, warm and dry Psychiatric: Orientation: alert and oriented x 3 Affect: + tearful affect Results & Data Results & Data ([facility]) Vital Signs (Past 12 Hours) Vital Signs Temp Pulse Resp BP Pulse Ox 08/16/20 21:20 37.4 C 94 H 16 129/85 91 Laboratory Results Laboratory Results - last 24 hr 08/16/20 08/16/20 08/16/20 06:41 06:41 06:41 Sodium Potassium Chloride Carbon Dioxide Anion Gap BUN Creatinine Est Cr Clr Drug Dosing Est GFR ( Amer) Est GFR (Non-Af Amer) BUN/Creatinine Ratio Glucose POC Glucose Estimat Average Glucose 269 Hemoglobin A1c 11.0 H Calcium Magnesium 2.4 Total Bilirubin Direct Bilirubin AST ALT Alkaline Phosphatase NT-Pro-B Natriuret Pep 51 Total Protein Albumin Procalcitonin < 0.05 08/16/20 08/16/20 08/16/20 06:42 08:32 12:15 Sodium 139 Potassium 3.0 L Chloride 108 H Carbon Dioxide 25 Anion Gap 7.0 BUN 5 L Creatinine 0.64 Est Cr Clr Drug Dosing 111.5 Est GFR ( Amer) 120.6 Est GFR (Non-Af Amer) 104.1 BUN/Creatinine Ratio 7.2 L Glucose 164 H POC Glucose 176 H 204 H Estimat Average Glucose Hemoglobin A1c Calcium 7.6 L Magnesium Total Bilirubin 0.9 Direct Bilirubin 0.3 H AST 38 H ALT 11 L Alkaline Phosphatase 128 H NT-Pro-B Natriuret Pep Total Protein 7.9 Albumin 2.7 L Procalcitonin 08/16/20 08/16/20 17:30 21:18 Sodium Potassium Chloride Carbon Dioxide Anion Gap BUN Creatinine Est Cr Clr Drug Dosing Est GFR ( Amer) Est GFR (Non-Af Amer) BUN/Creatinine Ratio Glucose POC Glucose 144 H 122 H Estimat Average Glucose Hemoglobin A1c Calcium Magnesium Total Bilirubin Direct Bilirubin AST ALT Alkaline Phosphatase NT-Pro-B Natriuret Pep Total Protein Albumin Procalcitonin PG Care Time/CCT Total # of Minutes Spent Total Time Spent with Patient: Total time spent is greater than 50% in coordination of care (as documented) at patient's floor/unit and/or counseling patient: Coding Level of Care Code 84588 Subseq Hosp Care Lvl 3 Diagnoses Pneumonia due to 2019 novel coronavirus U07.1; J12.82 Pancytopenia D61.818 Hypomagnesemia E83.42 Hypokalemia E87.6 Diabetes mellitus type 2, uncontrolled E11.65 Glycemic state: with hyperglycemia Hypophosphatemia E83.39 Anxiety F41.9 Hepatosplenomegaly R16.2 DVT prophylaxis Z29.9 (1) Diabetes mellitus type 2, uncontrolled Glycemic state: with hyperglycemia Qualified Code(s): E11.65 - Type 2 diabetes mellitus with hyperglycemia
[2020-08-17 07:14] LABS: Hematocrit (blood only) 33.2 % (37-47); Hemoglobin 10.8 g/dL (12.0-16.0); Mean Corpuscular Hemoglobin 25.5 pg (25-34); Mean Corpuscular Hgb Conc 32.5 g/dL (32-36); Mean Corpuscular Volume 78.5 fL (80-100); RDW Coefficient of Variation 15.5 % (11.5-14.5); RDW Standard Deviation 44.4 fL (36.4-46.3); Red Blood Count 4.23 M/uL (4.2-5.4); White Blood Count 3.39 K/uL (4.8-10.8)
[2020-08-17 07:40] LABS: Albumin Level 2.5 gm/dl (3.4-5.0); BUN Creatinine Ratio 8.1 (10-20); Bilirubin Direct 0.3 mg/dl (0-0.2); Calcium 7.2 mg/dl (8.5-10.1); Creatinine Clr Calc Pharmacy 127.4 ml/min; Est GFR (Non-African American) 108.7; Potassium 3.4 mmol/L (3.5-5.1)
[2020-08-17 07:42] LABS: Platelet Count 80 K/uL (130-400)
[2020-08-17 07:43] LABS: Bilirubin,Total 1.1 mg/dl (0.2-1); Mean Platelet Volume 9.6 fL (7.4-10.4); Total Protein 7.6 gm/dl (6.4-8.2)
[2020-08-17 07:52] LABS: Basophils # (auto) 0.01 K/uL (0-0.2); Basophils % (auto) 0.3 %; Immature Granulocytes # (auto) 0.01 K/uL (0.00-0.02); Immature Granulocytes % (auto) 0.3 %; Lymphocytes # (auto) 0.91 K/uL (1.2-3.4); Lymphocytes % (auto) 26.8 %; Monocytes # (auto) 0.13 K/uL (0.11-0.59); Monocytes % (auto) 3.8 %; Neutrophils # (auto) 2.33 K/uL (1.4-6.5); Neutrophils % (auto) 68.8 %
[2020-08-17 07:59] LABS: Folate (Folic Acid) 10.6 ng/ml (>5.38)
[2020-08-17] MEDS: INSULIN ASPART 100 UNITS/ML 3 ML PEN SC SCH ×4 (08:40→20:42)
[2020-08-17] MEDS: POT PHOSPHATE MONOBASIC W/ SOD TAB PO SCH ×4 (08:41→20:16)
[2020-08-17] MEDS: POTASSIUM CHLORIDE CRTAB 20 MEQ TABCR PO SCH (08:42)
[2020-08-17] MEDS: BENZONATATE 100 MG CAPSULE PO PRN (08:42)
[2020-08-17] MEDS: INSULIN GLARGINE SOLOSTAR 100 UNITS/ML 3 ML PEN SC SCH (09:19)
[2020-08-17] MEDS: dexAMETHasone 4 MG TAB PO SCH (10:05)
[2020-08-17] MEDS: CYANOCOBALAMIN 500 MCG TABLET (VITAMIN B-12) PO SCH (10:05)
[2020-08-17] MEDS: FAMOTIDINE 20 MG TAB PO SCH ×2 (10:05→20:16)
--- NOTE | 2020-08-17 11:30 | XRay Report ---
XR chest 1V portable CLINICAL HISTORY: COVID pneumonia, worsening dyspnea COMPARISON STUDY: CT scan dated 08/15/2020 FINDINGS: The heart is normal in size. There are multifocal pulmonary airspace opacities consistent w ith a multifocal pneumonia. There are no significant pleural effusions.[ IMPRESSION: Multifocal airspace opacities consistent with a multifocal pneumonia ACT 112: Negative or not required by law. Electronically signed by: Napoleon Acosta M.D. 08/17/2020 11:29 AM
[2020-08-17] MEDS: ENOXAPARIN INJ 40 MG/0.4 ML SYR SQ SCH ×2 (12:57→20:16)
[2020-08-17] MEDS: NYSTATIN SUSP 500,000 U/5 ML UDC PO SCH (20:16)
--- NOTE | 2020-08-17 20:34 | Hospitalist Progress Note ---
Date of Service August 17, 2020 Assessment & Plan (1) Pneumonia due to 2019 novel coronavirus: O2 sats have been fairly consistent <94%. CXR today with b/l pneumonia. Was placed on minimal amount of NC O2 today. Start decadron 6mg daily x 10 days. Patient is nearing 10 days into her illness - defer on plasma and remdesivir. Cont self-proning. Cont flutter valve. Cont incentive. Reassurance given to patient today that she overall looks good and hopefully worst is behind her. Cont supportive care. (2) Pancytopenia: 2nd to COVID-19 infection? liver disease? other? TSH, folate wnl b12 low-normal -- replace underlying liver disease should be considered if LFT abnormalities and pancytopenia persist. no evidence of myeloproliferative disease based on imaging. daily CBC. (3) Hypomagnesemia: replaced and resolved (4) Hypokalemia: ongoing replace with PO K bmp am (5) Diabetes mellitus type 2, uncontrolled: new diagnosis DM education consult appreciated increase lantus to 20 units daily adjust novolog supplemental/correction/carb coverage (6) Hypophosphatemia: cont oral K-phos neutral (7) Anxiety: buspar prn (8) Hepatosplenomegaly: could be 2nd to COVID-19 infection could be primary liver disease ultimately will need dedicated abd u/s trend her LFTs (9) B12 deficiency: start oral B12 -- 1000mcg daily (10) DVT prophylaxis: due to higher risk of VTE with COVID use lovenox 40mg BID father updated by phone today as well as yesterday can stop fluids today; appears hydrated on exam Admission and Anticipated Discharge Date Admission Date: August 16, 2020 Subjective overall feels better today she can breath more easily no ZUÑIGA less chest tightness cough - mainly dry she is trying to lay on side as much as possible and use flutter/incentive frequently diarrhea persists - multiple loose BMs today anorexia still present but drinking fluids still quite anxious and tearful Review of Systems Constitutional: + fever, + fatigue and + anorexia Ear, Nose, Mouth, Throat: no loss of taste or smell Respiratory: + cough; no wheezing Cardiovascular: no chest pain and no orthopnea Gastrointestinal: + nausea and + diarrhea/loose stools; no abdominal pain Physical Exam Constitutional: + obese; no acute distress and no altered mental status looks better today ENMT: external ear and nose normal, oropharynx normal Respiratory: no respiratory distress Auscultation: + diminished lung sounds (bases, but much improved today; better airation) and + crackles (bases - minimal ); no wheezes Cardiovascular: Rate/Rhythm: regular rate and regular rhythm Heart Sounds: normal S1 and normal S2; no murmur Vessels: posterior tibial pulses present and dorsalis pedis pulses present; no JVD Extremities: no edema Gastrointestinal (Abdomen): Percussion/Palpation: abdomen soft and + hepatomegaly; abdomen nontender, no guarding and no splenomegaly Skin: no rashes, warm and dry Psychiatric: Orientation: alert and oriented x 3 Affect: + anxious affect and + tearful affect Results & Data Results & Data ([facility]) Vital Signs (Past 12 Hours) Vital Signs Temp Pulse Resp BP Pulse Ox 08/17/20 14:05 37.2 C 95 H 18 112/70 93 08/17/20 08:36 37.9 C H 105 H 18 133/71 93 Laboratory Results Laboratory Results - last 24 hr 08/16/20 08/17/20 08/17/20 21:18 06:54 06:54 WBC 3.39 L RBC 4.23 Hgb 10.8 L Hct 33.2 L MCV 78.5 L MCH 25.5 MCHC 32.5 RDW Std Deviation 44.4 RDW Coeff of Radha 15.5 H Plt Count 80 L MPV 9.6 Immature Gran % (Auto) 0.3 Neut % (Auto) 68.8 Lymph % (Auto) 26.8 [place] % (Auto) 3.8 Eos % (Auto) 0.0 Baso % (Auto) 0.3 Neut # (Auto) 2.33 Lymph # (Auto) 0.91 L [place] # (Auto) 0.13 Eos # (Auto) 0.00 Baso # (Auto) 0.01 Immature Gran # (Auto) 0.01 Sodium 139 Potassium 3.4 L Chloride 110 H Carbon Dioxide 23 Anion Gap 7.0 BUN 5 L Creatinine 0.56 L Est Cr Clr Drug Dosing 127.4 Est GFR ( Amer) 126.0 Est GFR (Non-Af Amer) 108.7 BUN/Creatinine Ratio 8.1 L Glucose 132 H POC Glucose 122 H Calcium 7.2 L Total Bilirubin 1.1 H Direct Bilirubin 0.3 H AST 35 ALT 9 L Alkaline Phosphatase 119 H Total Protein 7.6 Albumin 2.5 L Vitamin B12 Folate TSH 08/17/20 08/17/20 08/17/20 06:54 06:54 08:39 WBC RBC Hgb Hct MCV MCH MCHC RDW Std Deviation RDW Coeff of Radha Plt Count MPV Immature Gran % (Auto) Neut % (Auto) Lymph % (Auto) [place] % (Auto) Eos % (Auto) Baso % (Auto) Neut # (Auto) Lymph # (Auto) [place] # (Auto) Eos # (Auto) Baso # (Auto) Immature Gran # (Auto) Sodium Potassium Chloride Carbon Dioxide Anion Gap BUN Creatinine Est Cr Clr Drug Dosing Est GFR ( Amer) Est GFR (Non-Af Amer) BUN/Creatinine Ratio Glucose POC Glucose 139 H Calcium Total Bilirubin Direct Bilirubin AST ALT Alkaline Phosphatase Total Protein Albumin Vitamin B12 289 Folate 10.60 TSH 2.540 08/17/20 08/17/20 12:30 16:56 WBC RBC Hgb Hct MCV MCH MCHC RDW Std Deviation RDW Coeff of Radha Plt Count MPV Immature Gran % (Auto) Neut % (Auto) Lymph % (Auto) [place] % (Auto) Eos % (Auto) Baso % (Auto) Neut # (Auto) Lymph # (Auto) [place] # (Auto) Eos # (Auto) Baso # (Auto) Immature Gran # (Auto) Sodium Potassium Chloride Carbon Dioxide Anion Gap BUN Creatinine Est Cr Clr Drug Dosing Est GFR ( Amer) Est GFR (Non-Af Amer) BUN/Creatinine Ratio Glucose POC Glucose 142 H 170 H Calcium Total Bilirubin Direct Bilirubin AST ALT Alkaline Phosphatase Total Protein Albumin Vitamin B12 Folate TSH PG Care Time/CCT Total # of Minutes Spent Total Time Spent with Patient: Total time spent is greater than 50% in coordination of care (as documented) at patient's floor/unit and/or counseling patient: Coding Level of Care Code 58180 Subseq Hosp Care Lvl 3 Diagnoses Pneumonia due to 2019 novel coronavirus U07.1; J12.82 Pancytopenia D61.818 Hypomagnesemia E83.42 Hypokalemia E87.6 Diabetes mellitus type 2, uncontrolled E11.65 Glycemic state: with hyperglycemia Hypophosphatemia E83.39 Anxiety F41.9 Hepatosplenomegaly R16.2 B12 deficiency E53.8 DVT prophylaxis Z29.9 (1) Diabetes mellitus type 2, uncontrolled Glycemic state: with hyperglycemia Qualified Code(s): E11.65 - Type 2 diabetes mellitus with hyperglycemia
[2020-08-18] MEDS: BENZONATATE 100 MG CAPSULE PO PRN ×3 (01:48→21:06)
[2020-08-18] MEDS: ACETAMINOPHEN 325 MG TAB PO PRN ×2 (01:48→21:06)
[2020-08-18] MEDS: guaiFENesin 600 MG TABCR PO PRN ×2 (01:48→21:07)
[2020-08-18 06:32] LABS: Hematocrit (blood only) 37.6 % (37-47); Hemoglobin 12.2 g/dL (12.0-16.0); Mean Corpuscular Hemoglobin 25.4 pg (25-34); Mean Corpuscular Hgb Conc 32.4 g/dL (32-36); Mean Corpuscular Volume 78.2 fL (80-100); Mean Platelet Volume 9.8 fL (7.4-10.4); Platelet Count 128 K/uL (130-400); RDW Coefficient of Variation 15.4 % (11.5-14.5); RDW Standard Deviation 44.4 fL (36.4-46.3); Red Blood Count 4.81 M/uL (4.2-5.4); White Blood Count 6.33 K/uL (4.8-10.8)
[2020-08-18 07:04] LABS: BUN Creatinine Ratio 9.4 (10-20); Calcium 7.6 mg/dl (8.5-10.1); Est GFR (African American) 122.5; Est GFR (Non-African American) 105.7; Potassium 3.2 mmol/L (3.5-5.1)
[2020-08-18 07:12] LABS: Ferritin 126.3 ng/ml (8-388)
[2020-08-18] MEDS: ENOXAPARIN INJ 40 MG/0.4 ML SYR SQ SCH ×2 (08:40→21:07)
[2020-08-18] MEDS: NYSTATIN SUSP 500,000 U/5 ML UDC PO SCH ×4 (08:40→21:06)
[2020-08-18] MEDS: INSULIN ASPART 100 UNITS/ML 3 ML PEN SC SCH ×4 (08:40→21:38)
[2020-08-18] MEDS: dexAMETHasone 4 MG TAB PO SCH (08:41)
[2020-08-18] MEDS: FAMOTIDINE 20 MG TAB PO SCH ×2 (08:41→21:07)
[2020-08-18] MEDS: POT PHOSPHATE MONOBASIC W/ SOD TAB PO SCH ×4 (08:42→21:07)
[2020-08-18] MEDS: busPIRone 5 MG TAB PO PRN ×2 (08:42→21:07)
[2020-08-18] MEDS: CYANOCOBALAMIN 500 MCG TABLET (VITAMIN B-12) PO SCH (08:43)
[2020-08-18] MEDS: INSULIN GLARGINE SOLOSTAR 100 UNITS/ML 3 ML PEN SC SCH (08:55)
[2020-08-18] MEDS: NSS + 20MEQ KCL 20 MEQ/1,000 ML BAG IV SCH (09:07)
[2020-08-18] MEDS: POTASSIUM CHLORIDE CRTAB 20 MEQ TABCR PO SCH ×3 (10:21→21:07)
--- NOTE | 2020-08-18 20:42 | Hospitalist Progress Note ---
Date of Service August 18, 2020 Assessment & Plan (1) Pneumonia due to 2019 novel coronavirus: Escalating O2 requirements. Due to inflammatory response/worsening COVID-19 pneumonia. Continue decadron 6mg daily x 10 days - today is day #2. Patient is about 11 days into her illness - defer on plasma and remdesivir. Cont self-proning. I demonstrated this to her today; she immediately reported improved breathing. Try to prone 4-5x's each day as long as possible. Cont flutter valve. Cont incentive. Check d-dimer in am. Cont supportive care. (2) Acute respiratory failure with hypoxia: 2nd COVID-19 pneumonia. Recent procal negative; defer on abx. Would recheck in the next 48 hours and low threshold to start IV abx if the procal rises. (3) Pancytopenia: WBC count improved. Hb stable. Platelets rising. 2nd to COVID-19 infection? liver disease? other? TSH, folate wnl b12 low-normal -- replace underlying liver disease should be considered if LFT abnormalities and pancytopenia persist. no evidence of myeloproliferative disease based on imaging. daily CBC. (4) Hypomagnesemia: replaced and resolved (5) Hypokalemia: ongoing cont PO replacement bmp am (6) Diabetes mellitus type 2, uncontrolled: new diagnosis DM education consult appreciated cont lantus 20 units daily add lantus 10 units HS adjust novolog supplemental/correction/carb coverage once again at discharge would use metformin 500mg BID as well (7) Hypophosphatemia: cont oral K-phos neutral check level next 48 hours (8) Anxiety: buspar prn melatonin HS prn (9) Hepatosplenomegaly: could be 2nd to COVID-19 infection could be primary liver disease ultimately will need dedicated abd u/s cont to trend her LFTs (10) B12 deficiency: started oral B12 -- 1000mcg daily (11) Candidiasis of mouth and esophagus: nystatin 5cc ac/hs swish/spit (12) DVT prophylaxis: due to higher risk of VTE with COVID - continue lovenox 40mg BID father updated by phone daily including today Admission and Anticipated Discharge Date Admission Date: August 16, 2020 Subjective patient continues with diarrhea - "pure water" - 3 stools since this am. she continues with cough and a "catch" in her central chest. she is discouraged that she is requiring more oxygen today. still with poor appetite. no vomiting. no abdominal pain. no ZUÑIGA. anxious and tearful. no fevers/chills. fatigue persists. has not proned yet. Review of Systems Constitutional: + fatigue and + anorexia; no body aches Ear, Nose, Mouth, Throat: still no loss of taste / smell Respiratory: + cough and + pain on inspiration Cardiovascular: as per Subjective / HPI; no orthopnea Gastrointestinal: no abdominal pain Integumentary: no rash Psychiatric: + abnormal sleep pattern and + anxiety Physical Exam Constitutional: + obese; no acute distress and no altered mental status ENMT: Mouth: + oral mucosal abnormality (thrush plaques on tongue ) Respiratory: no respiratory distress Auscultation: + diminished lung sounds (bases - mild ) and + crackles (bases); no wheezes Cardiovascular: Rate/Rhythm: regular rate and regular rhythm Heart Sounds: normal S1 and normal S2; no murmur Vessels: posterior tibial pulses present and dorsalis pedis pulses present; no JVD Extremities: no edema Gastrointestinal (Abdomen): Percussion/Palpation: abdomen soft and + hepatomegaly; abdomen nontender, no guarding and no splenomegaly Skin: no rashes, warm and dry Psychiatric: Orientation: alert and oriented x 3 Affect: + anxious affect and + tearful affect Results & Data Results & Data ([facility]) Vital Signs (Past 12 Hours) Vital Signs Temp Pulse Resp BP Pulse Ox 08/18/20 16:35 37.1 C 95 H 16 138/95 92 08/18/20 10:22 16 92 08/18/20 09:18 36.8 C 97 H 16 114/71 89 L Laboratory Results Laboratory Results - last 24 hr 08/17/20 08/18/20 08/18/20 20:25 05:55 05:55 WBC 6.33 RBC 4.81 Hgb 12.2 Hct 37.6 MCV 78.2 L MCH 25.4 MCHC 32.4 RDW Std Deviation 44.4 RDW Coeff of Radha 15.4 H Plt Count 128 L D MPV 9.8 Sodium 138 Potassium 3.2 L Chloride 106 Carbon Dioxide 23 Anion Gap 9.0 BUN 6 L Creatinine 0.61 Est Cr Clr Drug Dosing 117.0 Est GFR ( Amer) 122.5 Est GFR (Non-Af Amer) 105.7 BUN/Creatinine Ratio 9.4 L Glucose 159 H POC Glucose 240 H Calcium 7.6 L Iron 23 L Transferrin 227 Transferrin % Sat 7 L Ferritin 126.3 08/18/20 08/18/20 08/18/20 08:33 11:51 17:34 WBC RBC Hgb Hct MCV MCH MCHC RDW Std Deviation RDW Coeff of Radha Plt Count MPV Sodium Potassium Chloride Carbon Dioxide Anion Gap BUN Creatinine Est Cr Clr Drug Dosing Est GFR ( Amer) Est GFR (Non-Af Amer) BUN/Creatinine Ratio Glucose POC Glucose 159 H 195 H 194 H Calcium Iron Transferrin Transferrin % Sat Ferritin 08/18/20 20:29 WBC RBC Hgb Hct MCV MCH MCHC RDW Std Deviation RDW Coeff of Radha Plt Count MPV Sodium Potassium Chloride Carbon Dioxide Anion Gap BUN Creatinine Est Cr Clr Drug Dosing Est GFR ( Amer) Est GFR (Non-Af Amer) BUN/Creatinine Ratio Glucose POC Glucose 229 H Calcium Iron Transferrin Transferrin % Sat Ferritin PG Care Time/CCT Total # of Minutes Spent Total Time Spent with Patient: Total time spent is greater than 50% in coordination of care (as documented) at patient's floor/unit and/or counseling patient: Coding Level of Care Code 43112 Subseq Hosp Care Lvl 3 Diagnoses Pneumonia due to 2019 novel coronavirus U07.1; J12.82 Acute respiratory failure with hypoxia J96.01 Pancytopenia D61.818 Hypomagnesemia E83.42 Hypokalemia E87.6 Diabetes mellitus type 2, uncontrolled E11.65 Glycemic state: with hyperglycemia Hypophosphatemia E83.39 Anxiety F41.9 Hepatosplenomegaly R16.2 B12 deficiency E53.8 Candidiasis of mouth and esophagus B37.81; B37.0 DVT prophylaxis Z29.9 (1) Diabetes mellitus type 2, uncontrolled Glycemic state: with hyperglycemia Qualified Code(s): E11.65 - Type 2 diabetes mellitus with hyperglycemia
[2020-08-18] MEDS ORDERED: INSULIN GLARGINE SOLOSTAR 100 UNITS/ML 3 ML PEN SC SCH (21:00)
[2020-08-18] MEDS: MELATONIN 3 MG TAB PO SCH (21:07)
[2020-08-19 06:29] LABS: Hematocrit (blood only) 32.5 % (37-47); Hemoglobin 10.5 g/dL (12.0-16.0); Mean Corpuscular Hemoglobin 25.3 pg (25-34); Mean Corpuscular Hgb Conc 32.3 g/dL (32-36); Mean Corpuscular Volume 78.3 fL (80-100); Mean Platelet Volume 9.3 fL (7.4-10.4); Platelet Count 115 K/uL (130-400); RDW Coefficient of Variation 15.5 % (11.5-14.5); RDW Standard Deviation 44.6 fL (36.4-46.3); Red Blood Count 4.15 M/uL (4.2-5.4); White Blood Count 5.46 K/uL (4.8-10.8)
[2020-08-19 06:46] LABS: D Dimer 1460 ug/L FEU (0-500)
[2020-08-19 07:14] LABS: BUN Creatinine Ratio 18.4 (10-20); Calcium 7.4 mg/dl (8.5-10.1); Creatinine Clr Calc Pharmacy 158.6 ml/min; Est GFR (African American) 135.4; Est GFR (Non-African American) 116.8; Magnesium 2.4 mg/dl (1.8-2.4); Potassium 4.1 mmol/L (3.5-5.1)
[2020-08-19] MEDS: POT PHOSPHATE MONOBASIC W/ SOD TAB PO SCH ×4 (08:33→20:55)
[2020-08-19] MEDS: busPIRone 5 MG TAB PO PRN (08:33)
[2020-08-19] MEDS: CYANOCOBALAMIN 500 MCG TABLET (VITAMIN B-12) PO SCH (08:34)
[2020-08-19] MEDS: guaiFENesin 600 MG TABCR PO PRN (08:34)
[2020-08-19] MEDS: dexAMETHasone 4 MG TAB PO SCH (08:34)
[2020-08-19] MEDS: ENOXAPARIN INJ 40 MG/0.4 ML SYR SQ SCH ×2 (08:34→20:50)
[2020-08-19] MEDS: POTASSIUM CHLORIDE CRTAB 20 MEQ TABCR PO SCH (08:34)
[2020-08-19] MEDS: NYSTATIN SUSP 500,000 U/5 ML UDC PO SCH ×4 (08:35→20:55)
[2020-08-19] MEDS: INSULIN ASPART 100 UNITS/ML 3 ML PEN SC SCH ×4 (08:40→20:47)
[2020-08-19] MEDS: FAMOTIDINE 20 MG TAB PO SCH ×2 (08:42→20:55)
[2020-08-19] MEDS ORDERED: IPRATROPIUM BROMIDE/ALBUTEROL respimat INH INH SCH (09:10)
[2020-08-19] MEDS ORDERED: guaiFENesin 600 MG TABCR PO STA (09:12)
[2020-08-19] MEDS: INSULIN GLARGINE SOLOSTAR 100 UNITS/ML 3 ML PEN SC SCH ×2 (09:13→20:47)
[2020-08-19] MEDS: ALBUTEROL HFA 8 GM INHALER INH SCH ×4 (09:29→19:02)
[2020-08-19] MEDS: IPRATROPIUM BROMIDE HFA INHALER INH SCH ×4 (09:29→19:03)
--- NOTE | 2020-08-19 20:04 | Hospitalist Progress Note ---
Date of Service August 19, 2020 Assessment & Plan (1) Pneumonia due to 2019 novel coronavirus: Escalating O2 requirements. Due to inflammatory response/worsening COVID-19 pneumonia. Continue decadron 6mg daily x 10 days - today is day #3. Patient is about 10-12 days into her illness - plasma and remdesivir deferred. Cont self-proning. Try to prone 4-5x's each day as long as possible. Cont flutter valve. Cont incentive. Cont supportive care. Place on continuous pulse ox with low threshold to move to PCU/tele if O2 requirements rise further. Recheck procal in am - if high then add IV abx to cover for superimposed bacterial pneumonia. Recheck cxr in am. Added combivent inhaler + mucinex today. Of note - CTA at time of admission negative for PE. (2) Acute respiratory failure with hypoxia: 2nd COVID-19 pneumonia. Recent procal negative but recheck in am. Repeat cxr in am. No evidence of complicating CHF or PE. Dimer noted today; again CTA chest at admission neg for PE. (3) Diabetes mellitus type 2, uncontrolled: new diagnosis but was dx with pre-DM about 2-3 years ago DM education consult appreciated increase PM lantus to 20 units increase AM lantus to 25 units adjust novolog supplemental/correction/carb coverage once again today at discharge would use metformin 500mg BID as well (4) Pancytopenia: WBC count improved. Hb stable. Platelets rising but have not normalized. 2nd to COVID-19 infection? liver disease? other? TSH, folate wnl b12 low-normal -- replace no evidence of myeloproliferative disease based on imaging. recheck cbc in am. (5) Hypomagnesemia: replaced and resolved (6) Hypokalemia: replaced/resolved stop K supplementation bmp am (7) Hypophosphatemia: cont oral K-phos neutral check phos level am (8) Anxiety: buspar scheduled at HS due to significant night-time anxiety leading to insomnia melatonin HS prn (9) Hepatosplenomegaly: as seen on imaging could be 2nd to COVID-19 infection could be primary liver disease ultimately will need dedicated abd u/s recent ast/alt were wnl recent alk phos nearly normal (10) B12 deficiency: started oral B12 -- 1000mcg daily level was 289 (11) Candidiasis of mouth and esophagus: nystatin 5cc ac/hs swish/spit (12) DVT prophylaxis: due to higher risk of VTE with COVID - continue lovenox 40mg BID father updated by phone yesterday mother updated by phone tonight Admission and Anticipated Discharge Date Admission Date: August 16, 2020 Subjective upon arrival patient was proning. she reports proning most of the morning and early afternoon. if not proning she is getting into the chair. walking to bathroom without significant difficulty. she does get tired easily. she has noted that proning helps her breathing be more comfortable. cont flutter and incentive. she admits to feeling very anxious and scared. slept poorly last night - due to anxiety. eating fair - does ask for diet advancement during the visit. no fevers/chills/myalgias/loss of taste or smell. no abd pain. continues with diarrhea however - multiple loose, watery stools today. Review of Systems Constitutional: + fatigue and + anorexia; no fever and no chills Ear, Nose, Mouth, Throat: no nasal congestion and no sore throat Respiratory: + cough and + dyspnea on exertion; no wheezing Cardiovascular: + chest pain; no orthopnea and no edema Gastrointestinal: + nausea and + diarrhea/loose stools; no abdominal pain Musculoskeletal: no body aches Integumentary: no rash Psychiatric: + abnormal sleep pattern and + anxiety Physical Exam Constitutional: + obese; no acute distress and no altered mental status kristy y anxious ENMT: external ear and nose normal, oropharynx normal Mouth: + oral mucosal abnormality (thrush plaques on tongue improved today ) Respiratory: no respiratory distress Auscultation: + diminished lung sounds (bases - mild ) and + crackles (bases); no wheezes Cardiovascular: Rate/Rhythm: regular rate and regular rhythm Heart Sounds: normal S1 and normal S2; no murmur Vessels: posterior tibial pulses present and dorsalis pedis pulses present; no JVD Extremities: no edema Gastrointestinal (Abdomen): Percussion/Palpation: abdomen soft; abdomen nontender, no guarding, no hepatomegaly and no splenomegaly Skin: no rashes, warm and dry Psychiatric: Orientation: alert and oriented x 3 Affect: + anxious affect Results & Data Results & Data ([facility]) Vital Signs (Past 12 Hours) Vital Signs Temp Pulse Resp BP Pulse Ox 08/19/20 19:06 98 H 20 87 L 08/19/20 16:00 37.1 C 103 H 16 133/78 91 08/19/20 15:20 103 H 22 94 08/19/20 11:37 111 H 20 08/19/20 09:28 103 H 20 93 08/19/20 09:00 88 L 08/19/20 08:50 36.6 C 107 H 20 131/79 90 Laboratory Results Laboratory Results - last 24 hr 08/18/20 08/19/20 08/19/20 20:29 05:57 05:57 WBC 5.46 RBC 4.15 L Hgb 10.5 L Hct 32.5 L MCV 78.3 L MCH 25.3 MCHC 32.3 RDW Std Deviation 44.6 RDW Coeff of Radha 15.5 H Plt Count 115 L MPV 9.3 D-Dimer Sodium 140 Potassium 4.1 D Chloride 110 H Carbon Dioxide 23 Anion Gap 7.0 BUN 8 Creatinine 0.45 L Est Cr Clr Drug Dosing 158.6 Est GFR ( Amer) 135.4 Est GFR (Non-Af Amer) 116.8 BUN/Creatinine Ratio 18.4 Glucose 164 H POC Glucose 229 H Calcium 7.4 L Magnesium 2.4 08/19/20 08/19/20 08/19/20 05:57 08:31 12:25 WBC RBC Hgb Hct MCV MCH MCHC RDW Std Deviation RDW Coeff of Radha Plt Count MPV D-Dimer 1460 H* Sodium Potassium Chloride Carbon Dioxide Anion Gap BUN Creatinine Est Cr Clr Drug Dosing Est GFR ( Amer) Est GFR (Non-Af Amer) BUN/Creatinine Ratio Glucose POC Glucose 175 H 247 H Calcium Magnesium 08/19/20 17:43 WBC RBC Hgb Hct MCV MCH MCHC RDW Std Deviation RDW Coeff of Radha Plt Count MPV D-Dimer Sodium Potassium Chloride Carbon Dioxide Anion Gap BUN Creatinine Est Cr Clr Drug Dosing Est GFR ( Amer) Est GFR (Non-Af Amer) BUN/Creatinine Ratio Glucose POC Glucose 180 H Calcium Magnesium PG Care Time/CCT Total # of Minutes Spent Total Time Spent with Patient: Total time spent is greater than 50% in coordination of care (as documented) at patient's floor/unit and/or counseling patient: Coding Level of Care Code 94877 Subseq Hosp Care Lvl 3 Diagnoses Pneumonia due to 2019 novel coronavirus U07.1; J12.82 Acute respiratory failure with hypoxia J96.01 Diabetes mellitus type 2, uncontrolled E11.65 Glycemic state: with hyperglycemia Pancytopenia D61.818 Hypomagnesemia E83.42 Hypokalemia E87.6 Hypophosphatemia E83.39 Anxiety F41.9 Hepatosplenomegaly R16.2 B12 deficiency E53.8 Candidiasis of mouth and esophagus B37.81; B37.0 DVT prophylaxis Z29.9 (1) Diabetes mellitus type 2, uncontrolled Glycemic state: with hyperglycemia Qualified Code(s): E11.65 - Type 2 diabetes mellitus with hyperglycemia
[2020-08-19] MEDS: MELATONIN 3 MG TAB PO SCH (20:54)
[2020-08-19] MEDS: busPIRone 5 MG TAB PO SCH (20:54)
[2020-08-19] MEDS: guaiFENesin 600 MG TABCR PO SCH (20:54)
[2020-08-20] MEDS ORDERED: SODIUM CHLORIDE 0.65% NA SOLN 45 ML (OCEAN) PRN (06:09)
[2020-08-20] MEDS ORDERED: SODIUM CHLORIDE 0.65% NA SOLN 45 ML (OCEAN) ONE (06:14)
[2020-08-20] MEDS: IPRATROPIUM BROMIDE HFA INHALER INH SCH ×4 (07:48→19:11)
[2020-08-20] MEDS: ALBUTEROL HFA 8 GM INHALER INH SCH ×4 (07:49→19:11)
--- NOTE | 2020-08-20 07:51 | Hospitalist Progress Note ---
Date of Service August 20, 2020 Assessment & Plan (1) Pneumonia due to 2019 novel coronavirus: Escalating O2 requirements. Due to inflammatory response/worsening COVID-19 pneumonia. Continue decadron 6mg daily x 10 days - today is day #3. Patient is about 10-12 days into her illness - plasma and remdesivir deferred. Cont self-proning. Try to prone 4-5x's each day as long as possible. Cont flutter valve. Cont incentive. Cont supportive care. Place on continuous pulse ox with low threshold to move to PCU/tele if O2 requirements rise further. Recheck procal in am - if high then add IV abx to cover for superimposed bacterial pneumonia. Recheck cxr in am. Added combivent inhaler + mucinex today. Of note - CTA at time of admission negative for PE. (2) Acute respiratory failure with hypoxia: 2nd COVID-19 pneumonia. Recent procal negative but recheck in am. Repeat cxr in am. No evidence of complicating CHF or PE. Dimer noted today; again CTA chest at admission neg for PE. (3) Diabetes mellitus type 2, uncontrolled: new diagnosis but was dx with pre-DM about 2-3 years ago DM education consult appreciated increase PM lantus to 20 units increase AM lantus to 25 units adjust novolog supplemental/correction/carb coverage once again today at discharge would use metformin 500mg BID as well (4) Pancytopenia: WBC count improved. Hb stable. Platelets rising but have not normalized. 2nd to COVID-19 infection? liver disease? other? TSH, folate wnl b12 low-normal -- replace no evidence of myeloproliferative disease based on imaging. recheck cbc in am. (5) Hypomagnesemia: replaced and resolved (6) Hypokalemia: replaced/resolved stop K supplementation bmp am (7) Hypophosphatemia: cont oral K-phos neutral check phos level am (8) Anxiety: buspar scheduled at HS due to significant night-time anxiety leading to insomnia melatonin HS prn (9) Hepatosplenomegaly: as seen on imaging could be 2nd to COVID-19 infection could be primary liver disease ultimately will need dedicated abd u/s recent ast/alt were wnl recent alk phos nearly normal (10) B12 deficiency: started oral B12 -- 1000mcg daily level was 289 (11) Candidiasis of mouth and esophagus: nystatin 5cc ac/hs swish/spit (12) DVT prophylaxis: due to higher risk of VTE with COVID - continue lovenox 40mg BID father updated by phone yesterday mother updated by phone tonight Admission and Anticipated Discharge Date Admission Date: August 16, 2020 Results & Data Results & Data ([facility]) Vital Signs (Past 12 Hours) Vital Signs Temp Pulse Resp BP Pulse Ox 08/20/20 06:06 36.7 C 107 H 18 133/85 90 08/19/20 21:06 36.6 C 105 H 20 137/85 91 Laboratory Results Abnormal lab results 08/19/20 08/19/20 08/19/20 Range/Units 08:31 12:25 17:43 POC Glucose 175 H 247 H 180 H (70-99) mg/dl 08/19/20 Range/Units 20:42 POC Glucose 242 H (70-99) mg/dl Medications Administered Current Inpatient Medications Acetaminophen (Acetaminophen 325 Mg Tab) 650 mg PO Q4H PRN PRN Reason: Pain or Fever Stop: 09/15/20 03:18 Last Admin: 08/18/20 21:06 Dose: 650 mg Documented by: Albuterol (Albuterol Hfa 8 Gm Inhaler) 1 puffs INH QIDR [facility] Stop: 09/18/20 09:14 Last Admin: 08/20/20 07:49 Dose: 1 puffs Documented by: Benzonatate (Benzonatate 100 Mg Capsule) 100 mg PO Q8H PRN PRN Reason: Cough Stop: 09/15/20 02:19 Last Admin: 08/18/20 21:06 Dose: 100 mg Documented by: Buspirone HCl (Buspirone 5 Mg Tab) 5 mg PO BID PRN PRN Reason: Anxiety Stop: 09/15/20 20:59 Last Admin: 08/19/20 08:33 Dose: 5 mg Documented by: Buspirone HCl (Buspirone 5 Mg Tab) [address] [facility] Stop: 09/18/20 20:59 Last Admin: 08/19/20 20:54 Dose: 5 mg Documented by: Cyanocobalamin (Cyanocobalamin 500 Mcg Tablet (Vitamin B-12)) [facility] [place] Stop: 09/16/20 08:59 Last Admin: 08/19/20 08:34 Dose: 1,000 mcg Documented by: Dexamethasone (Dexamethasone 4 Mg Tab) 6 mg PO QAM [facility] Stop: 09/16/20 08:59 Last Admin: 08/19/20 08:34 Dose: 6 mg Documented by: Dextrose (Dextrose 50% 50 Ml Syringe) 25 - 50 ml IV UD PRN; Protocol PRN Reason: Hypoglycemia Protocol Stop: 09/15/20 02:19 Enoxaparin Sodium (Enoxaparin Inj 40 Mg/0.4 Ml Syr) 40 mg SQ Q12 [facility] Stop: 09/15/20 08:59 Last Admin: 08/19/20 20:50 Dose: 40 mg Documented by: Famotidine (Famotidine 20 Mg Tab) 20 mg PO BID [facility] Stop: 09/16/20 08:59 Last Admin: 08/19/20 20:55 Dose: 20 mg Documented by: Glucagon (Glucagon For Inj 1 Mg Vial) 1 mg SQ UD PRN; Protocol PRN Reason: Hypoglycemia Protocol Stop: 09/15/20 02:19 Glucose (Glucose 10 Tabs/Tube) 4 - 8 tabs PO UD PRN; Protocol PRN Reason: Hypoglycemia Protocol Stop: 09/15/20 02:19 Glucose (Glucose 40% Gel 15 Gm Tube) 15 - 30 gm PO UD PRN; Protocol PRN Reason: Hypoglycemia Protocol Stop: 09/15/20 02:19 Guaifenesin (Guaifenesin 600 Mg Tabcr) 1,200 mg PO Q12 [facility] Stop: 09/18/20 20:59 Last Admin: 08/19/20 20:54 Dose: 1,200 mg Documented by: Insulin Aspart (Insulin Aspart 100 Units/Ml 3 Ml Pen) 0 units SC ACHS [facility] Stop: 09/15/20 16:29 Last Admin: 08/19/20 20:47 Dose: 7 units Documented by: Insulin Glargine (Insulin Glargine Solostar 100 Units/Ml 3 Ml Pen) 20 units SC HS [facility] Stop: 09/18/20 20:59 Last Admin: 08/19/20 20:47 Dose: 20 units Documented by: Insulin Glargine (Insulin Glargine Solostar 100 Units/Ml 3 Ml Pen) 25 units SC QAM [facility] Stop: 09/19/20 08:59 Ipratropium [place] (Ipratropium [place] Hfa Inhaler) 1 puffs INH QIDR [facility] Stop: 09/18/20 09:14 Last Admin: 08/20/20 07:48 Dose: 1 puffs Documented by: Melatonin (Melatonin 3 Mg Tab) 3 mg PO HS [facility] Stop: 09/17/20 20:59 Last Admin: 08/19/20 20:54 Dose: 3 mg Documented by: Miscellaneous (Carbohydrates For Hypoglycemia ) 15 - 30 gm PO UD PRN PRN Reason: Hypoglycemia Protocol Stop: 09/15/20 02:19 Nystatin (Nystatin Susp 500,000 U/5 Ml Udc) 5 ml PO QID [facility] Stop: 08/27/20 20:59 Last Admin: 08/19/20 20:55 Dose: 5 ml Documented by: Potassium Phosphate (Pot Phosphate Monobasic W/ Sod Tab) 1 tab PO QID [facility] Stop: 09/15/20 16:59 Last Admin: 08/19/20 20:55 Dose: 1 tab Documented by: Sodium Chloride (Sodium Chloride 0.65% Na Soln 45 Ml ([place])) 1 sprays NA PRN PRN PRN Reason: Congestion Stop: 09/19/20 06:08 Last Admin: 08/20/20 06:15 Dose: 1 sprays Documented by: PG Care Time/CCT Total # of Minutes Spent Total Time Spent with Patient: Total time spent is greater than 50% in coordination of care (as documented) at patient's floor/unit and/or counseling patient: Coding Diagnoses Pneumonia due to 2019 novel coronavirus U07.1; J12.82 Acute respiratory failure with hypoxia J96.01 Diabetes mellitus type 2, uncontrolled E11.65 Glycemic state: with hyperglycemia Pancytopenia D61.818 Hypomagnesemia E83.42 Hypokalemia E87.6 Hypophosphatemia E83.39 Anxiety F41.9 Hepatosplenomegaly R16.2 B12 deficiency E53.8 Candidiasis of mouth and esophagus B37.81; B37.0 DVT prophylaxis Z29.9 (1) Diabetes mellitus type 2, uncontrolled Glycemic state: with hyperglycemia Qualified Code(s): E11.65 - Type 2 diabetes mellitus with hyperglycemia
--- NOTE | 2020-08-20 08:03 | XRay Report ---
XR chest 1V portable CLINICAL HISTORY: COVID pneumonia, interval change COMPARISON STUDY: 08/17/2020 FINDINGS: The cardiac and mediastinal contours remain stable. There are worsening bilateral pulmonary airspace opacities consistent with multifocal pneumonia. There are no cystic pleural effusions[ IMPRESSION: Worsening bilateral multifocal airspace opacities ACT 112: Negative or not required by law. Electronically signed by: Napoleon Acosta M.D. 08/20/2020 8:01 AM
[2020-08-20] MEDS: dexAMETHasone 4 MG TAB PO SCH (08:25)
[2020-08-20] MEDS: NYSTATIN SUSP 500,000 U/5 ML UDC PO SCH ×4 (08:26→20:36)
[2020-08-20] MEDS: guaiFENesin 600 MG TABCR PO SCH ×2 (08:26→20:37)
[2020-08-20] MEDS: ENOXAPARIN INJ 40 MG/0.4 ML SYR SQ SCH ×2 (08:26→20:35)
[2020-08-20] MEDS: FAMOTIDINE 20 MG TAB PO SCH ×2 (08:26→20:38)
[2020-08-20] MEDS: POT PHOSPHATE MONOBASIC W/ SOD TAB PO SCH ×4 (08:27→20:38)
[2020-08-20] MEDS: CYANOCOBALAMIN 500 MCG TABLET (VITAMIN B-12) PO SCH (08:27)
[2020-08-20] MEDS: INSULIN ASPART 100 UNITS/ML 3 ML PEN SC SCH ×4 (08:30→20:43)
[2020-08-20 08:54] LABS: Hematocrit (blood only) 34.3 % (37-47); Hemoglobin 11.1 g/dL (12.0-16.0); Mean Corpuscular Hemoglobin 25.4 pg (25-34); Mean Corpuscular Hgb Conc 32.4 g/dL (32-36); Mean Corpuscular Volume 78.5 fL (80-100); Mean Platelet Volume 9.6 fL (7.4-10.4); Platelet Count 163 K/uL (130-400); RDW Coefficient of Variation 15.5 % (11.5-14.5); RDW Standard Deviation 44.3 fL (36.4-46.3); Red Blood Count 4.37 M/uL (4.2-5.4); White Blood Count 6.23 K/uL (4.8-10.8)
[2020-08-20] MEDS ORDERED: POTASSIUM CHLORIDE CRTAB 20 MEQ TABCR PO SCH (09:00)
[2020-08-20] MEDS: INSULIN GLARGINE SOLOSTAR 100 UNITS/ML 3 ML PEN SC SCH ×2 (09:23→20:43)
[2020-08-20 09:32] LABS: BUN Creatinine Ratio 10.4 (10-20); Calcium 8.1 mg/dl (8.5-10.1); Creatinine Clr Calc Pharmacy 129.7 ml/min; Est GFR (African American) 126.8; Est GFR (Non-African American) 109.4; Phosphorus 2.3 mg/dl (2.5-4.9); Potassium 3.4 mmol/L (3.5-5.1)
[2020-08-20 09:47] LABS: Basophils # (auto) 0.02 K/uL (0-0.2); Basophils % (auto) 0.3 %; Immature Granulocytes # (auto) 0.08 K/uL (0.00-0.02); Immature Granulocytes % (auto) 1.3 %; Lymphocytes % (auto) 19.3 %; Monocytes # (auto) 0.27 K/uL (0.11-0.59); Monocytes % (auto) 4.3 %; Neutrophils # (auto) 4.66 K/uL (1.4-6.5); Neutrophils % (auto) 74.8 %
[2020-08-20] MEDS ORDERED: POTASSIUM PHOS 3 MMOL/1 ML INFUSION IV STA (10:33)
--- NOTE | 2020-08-20 10:53 | Hospitalist Progress Note ---
Date of Service August 20, 2020 Assessment & Plan (1) Pneumonia due to 2019 novel coronavirus: Escalating O2 requirements, up to 9L today Continue decadron 6mg daily x 10 days - today is day #4. Patient is about 10-12 days into her illness - plasma and remdesivir deferred. Cont self-proning Try to prone 4-5x's each day as long as possible, she is compliant Cont flutter valve. Cont incentive. Cont supportive care. CXR today with worsening infiltrates Added combivent inhaler + mucinex Of note - CTA at time of admission negative for PE. (2) Acute respiratory failure with hypoxia: 2nd COVID-19 pneumonia. Recent procal negative No evidence of complicating CHF or PE. Dimer noted; again CTA chest at admission neg for PE. now requiring 9L wall high flow, if saturations drop will place on Vapotherm discussed with her that it can be normal for patients to get worse before they start to recover would not be surprised if she needs Vapotherm but it will be okay she is not in distress, she is eating/drinking well (3) Diabetes mellitus type 2, uncontrolled: new diagnosis but was dx with pre-DM about 2-3 years ago DM education consult appreciated PM lantus 20 units AM lantus 25 units Novolog at discharge would use metformin 500mg BID (4) Pancytopenia: WBC count improved to 6k Hb stable at 11 Platelets now normal at 163k. likely 2nd to COVID-19 infection TSH, folate wnl b12 low-normal -- replace (5) Hypomagnesemia: replaced and resolved (6) Hypokalemia: low at 3.4, K phos IV given today (7) Hypophosphatemia: cont oral K-phos neutral phos still low, will give additional K phos IV today (8) Anxiety: buspar scheduled at HS due to significant night-time anxiety leading to insomnia melatonin HS prn (9) Hepatosplenomegaly: as seen on imaging could be 2nd to COVID-19 infection could be primary liver disease ultimately will need dedicated abd u/s recent ast/alt were wnl recent alk phos nearly normal (10) B12 deficiency: started oral B12 -- 1000mcg daily level was 289 (11) Candidiasis of mouth and esophagus: nystatin 5cc ac/hs swish/spit (12) DVT prophylaxis: due to higher risk of VTE with COVID - continue lovenox 40mg BID Admission and Anticipated Discharge Date Admission Date: August 16, 2020 Subjective moved patient to PCU, room 234, due to increasing oxygen requirements this morning the good news is that she is not in distress, no labored breathing, maybe a little tachypneic she immediately got anxious when we transferred her because she thought it was a sign she was getting worse, she was not going to survive I spent time at the bedside assuring her that a lot of cases of COVID get a little worse in terms of oxygen requirements while she is on 9L, she could be on more oxygen and she might reach that point but she is doing all the right things, she is eating and drinking, she is laying prone a few hours a day, she is cooperative labs show K and Phos are both a little low, will offer IV replacement today reviewed chart Review of Systems Review of Systems: All systems reviewed & are unremarkable except as noted in Subjective Constitutional: + fatigue; no fever, no chills, no sweats and no weakness Ear, Nose, Mouth, Throat: + nasal congestion Respiratory: + cough, + dyspnea and + dyspnea on exertion Cardiovascular: no chest pain Gastrointestinal: + diarrhea/loose stools; no abdominal pain, no nausea, no vomiting and no constipation Physical Exam Constitutional: WD/WN, vitals as above + ill appearing and + overweight; no acute distress Neck: trachea midline, no thyromegaly Respiratory: normal respiratory effort, lungs clear to auscultation Cardiovascular: Rate/Rhythm: regular rhythm and + tachycardic Heart Sounds: normal S1 and normal S2; no murmur Vessels: no JVD Extremities: normal capillary refill; no edema Gastrointestinal (Abdomen): normal bowel sounds, soft, nontender, no hepatosplenomegaly Musculoskeletal: no cyanosis or clubbing, extremities motor strength 5/5 Skin: no rashes, warm and dry Neurologic: patellar DTR's 2+ bilat, sensation intact and PERRL, EOMI, accommodation nl, no face palsy, no dysarthria Psychiatric: Orientation: alert and oriented x 3 Affect: + anxious affect Lymphatic: no cervical or axillary lymphadenopathy Results & Data Results & Data ([facility]) Vital Signs (Past 12 Hours) Vital Signs Temp Pulse Pulse Resp BP BP Pulse Ox 08/20/20 10:23 36.8 C 106 H 20 140/83 91 08/20/20 08:21 36.9 C 106 H 16 117/76 90 08/20/20 08:00 85 L 08/20/20 07:49 100 H 20 88 L 08/20/20 06:06 36.7 C 107 H 18 133/85 90 Laboratory Results Laboratory Results - last 24 hr 08/19/20 08/19/20 08/19/20 12:25 17:43 20:42 WBC RBC Hgb Hct MCV MCH MCHC RDW Std Deviation RDW Coeff of Radha Plt Count MPV Immature Gran % (Auto) Neut % (Auto) Lymph % (Auto) Ralls % (Auto) Eos % (Auto) Baso % (Auto) Neut # (Auto) Lymph # (Auto) Ralls # (Auto) Eos # (Auto) Baso # (Auto) Immature Gran # (Auto) Sodium Potassium Chloride Carbon Dioxide Anion Gap BUN Creatinine Est Cr Clr Drug Dosing Est GFR ( Amer) Est GFR (Non-Af Amer) BUN/Creatinine Ratio Glucose POC Glucose 247 H 180 H 242 H Calcium Phosphorus Total Creatine Kinase Procalcitonin 08/20/20 08/20/20 08/20/20 08:19 08:43 08:43 WBC 6.23 RBC 4.37 Hgb 11.1 L Hct 34.3 L MCV 78.5 L MCH 25.4 MCHC 32.4 RDW Std Deviation 44.3 RDW Coeff of Radha 15.5 H Plt Count 163 MPV 9.6 Immature Gran % (Auto) 1.3 Neut % (Auto) 74.8 Lymph % (Auto) 19.3 Ralls % (Auto) 4.3 Eos % (Auto) 0.0 Baso % (Auto) 0.3 Neut # (Auto) 4.66 Lymph # (Auto) 1.20 Ralls # (Auto) 0.27 Eos # (Auto) 0.00 Baso # (Auto) 0.02 Immature Gran # (Auto) 0.08 H Sodium 143 Potassium 3.4 L D Chloride 107 Carbon Dioxide 23 Anion Gap 13.0 H BUN 6 L Creatinine 0.55 L Est Cr Clr Drug Dosing 129.7 Est GFR ( Amer) 126.8 Est GFR (Non-Af Amer) 109.4 BUN/Creatinine Ratio 10.4 Glucose 146 H POC Glucose 149 H Calcium 8.1 L Phosphorus 2.3 L Total Creatine Kinase 113 Procalcitonin 08/20/20 08:43 WBC RBC Hgb Hct MCV MCH MCHC RDW Std Deviation RDW Coeff of Radha Plt Count MPV Immature Gran % (Auto) Neut % (Auto) Lymph % (Auto) Ralls % (Auto) Eos % (Auto) Baso % (Auto) Neut # (Auto) Lymph # (Auto) Ralls # (Auto) Eos # (Auto) Baso # (Auto) Immature Gran # (Auto) Sodium Potassium Chloride Carbon Dioxide Anion Gap BUN Creatinine Est Cr Clr Drug Dosing Est GFR ( Amer) Est GFR (Non-Af Amer) BUN/Creatinine Ratio Glucose POC Glucose Calcium Phosphorus Total Creatine Kinase Procalcitonin 0.08 Medications Administered Current Inpatient Medications Acetaminophen (Acetaminophen 325 Mg Tab) 650 mg PO Q4H PRN PRN Reason: Pain or Fever Stop: 09/15/20 03:18 Last Admin: 08/18/20 21:06 Dose: 650 mg Documented by: Albuterol (Albuterol Hfa 8 Gm Inhaler) 1 puffs INH QIDR [facility] Stop: 09/18/20 09:14 Last Admin: 08/20/20 07:49 Dose: 1 puffs Documented by: Benzonatate (Benzonatate 100 Mg Capsule) 100 mg PO Q8H PRN PRN Reason: Cough Stop: 09/15/20 02:19 Last Admin: 08/18/20 21:06 Dose: 100 mg Documented by: Buspirone HCl (Buspirone 5 Mg Tab) 5 mg PO BID PRN PRN Reason: Anxiety Stop: 09/15/20 20:59 Last Admin: 08/19/20 08:33 Dose: 5 mg Documented by: Buspirone HCl (Buspirone 5 Mg Tab) 5 mg PO HS [facility] Stop: 09/18/20 20:59 Last Admin: 08/19/20 20:54 Dose: 5 mg Documented by: Cyanocobalamin (Cyanocobalamin 500 Mcg Tablet (Vitamin B-12)) 1,000 mcg PO QAM [facility] Stop: 09/16/20 08:59 Last Admin: 08/20/20 08:27 Dose: 1,000 mcg Documented by: Dexamethasone (Dexamethasone 4 Mg Tab) [facility] [place] Stop: 09/16/20 08:59 Last Admin: 08/20/20 08:25 Dose: 6 mg Documented by: Dextrose (Dextrose 50% 50 Ml Syringe) 25 - 50 ml IV UD PRN; Protocol PRN Reason: Hypoglycemia Protocol Stop: 09/15/20 02:19 Enoxaparin Sodium (Enoxaparin Inj 40 Mg/0.4 Ml Syr) 40 mg SQ Q12 [facility] Stop: 09/15/20 08:59 Last Admin: 08/20/20 08:26 Dose: 40 mg Documented by: Famotidine (Famotidine 20 Mg Tab) 20 mg PO BID [facility] Stop: 09/16/20 08:59 Last Admin: 08/20/20 08:26 Dose: 20 mg Documented by: Glucagon (Glucagon For Inj 1 Mg Vial) 1 mg SQ UD PRN; Protocol PRN Reason: Hypoglycemia Protocol Stop: 09/15/20 02:19 Glucose (Glucose 10 Tabs/Tube) 4 - 8 tabs PO UD PRN; Protocol PRN Reason: Hypoglycemia Protocol Stop: 09/15/20 02:19 Glucose (Glucose 40% Gel 15 Gm Tube) 15 - 30 gm PO UD PRN; Protocol PRN Reason: Hypoglycemia Protocol Stop: 09/15/20 02:19 Guaifenesin (Guaifenesin 600 Mg Tabcr) 1,200 mg PO Q12 [facility] Stop: 09/18/20 20:59 Last Admin: 08/20/20 08:26 Dose: 1,200 mg Documented by: Potassium Phosphate 24 mmol/ (Sodium Chloride) 508 mls @ 88 mls/hr IV ONE ONE Stop: 08/20/20 16:46 Last Admin: 08/20/20 10:52 Dose: 88 mls/hr Documented by: Insulin Aspart (Insulin Aspart 100 Units/Ml 3 Ml Pen) 0 units SC ACHS [facility] Stop: 09/15/20 16:29 Last Admin: 08/20/20 08:30 Dose: 15 units Documented by: Insulin Glargine (Insulin Glargine Solostar 100 Units/Ml 3 Ml Pen) 20 units SC HS [facility] Stop: 09/18/20 20:59 Last Admin: 08/19/20 20:47 Dose: 20 units Documented by: Insulin Glargine (Insulin Glargine Solostar 100 Units/Ml 3 Ml Pen) 25 units SC QAM [facility] Stop: 09/19/20 08:59 Last Admin: 08/20/20 09:23 Dose: 25 units Documented by: Ipratropium [place] (Ipratropium [place] Hfa Inhaler) 1 puffs INH QIDR [facility] Stop: 09/18/20 09:14 Last Admin: 08/20/20 07:48 Dose: 1 puffs Documented by: Melatonin (Melatonin 3 Mg Tab) 3 mg PO HS [facility] Stop: 09/17/20 20:59 Last Admin: 08/19/20 20:54 Dose: 3 mg Documented by: Miscellaneous (Carbohydrates For Hypoglycemia ) 15 - 30 gm PO UD PRN PRN Reason: Hypoglycemia Protocol Stop: 09/15/20 02:19 Nystatin (Nystatin Susp 500,000 U/5 Ml Udc) 5 ml PO QID [facility] Stop: 08/27/20 20:59 Last Admin: 08/20/20 08:26 Dose: 5 ml Documented by: Potassium Phosphate (Pot Phosphate Monobasic W/ Sod Tab) 1 tab PO QID [facility] Stop: 09/15/20 16:59 Last Admin: 08/20/20 08:27 Dose: 1 tab Documented by: Sodium Chloride (Sodium Chloride 0.65% Na Soln 45 Ml ([place])) 1 sprays NA PRN PRN PRN Reason: Congestion Stop: 09/19/20 06:08 Last Admin: 08/20/20 06:15 Dose: 1 sprays Documented by: PG Care Time/CCT Total # of Minutes Spent Total Time Spent with Patient: Total time spent is greater than 50% in coordination of care (as documented) at patient's floor/unit and/or counseling patient: Coding Level of Care Code 48090 Subs Hosp Care Lvl 3 Diagnoses Pneumonia due to 2019 novel coronavirus U07.1; J12.82 Acute respiratory failure with hypoxia J96.01 Diabetes mellitus type 2, uncontrolled E11.65 Glycemic state: with hyperglycemia Pancytopenia D61.818 Hypomagnesemia E83.42 Hypokalemia E87.6 Hypophosphatemia E83.39 Anxiety F41.9 Hepatosplenomegaly R16.2 B12 deficiency E53.8 Candidiasis of mouth and esophagus B37.81; B37.0 DVT prophylaxis Z29.9 (1) Diabetes mellitus type 2, uncontrolled Glycemic state: with hyperglycemia Qualified Code(s): E11.65 - Type 2 diabetes mellitus with hyperglycemia
[2020-08-20] MEDS ORDERED: POTASSIUM PHOSPHATE 24 MMOL in SODIUM CHLORIDE 0.9% 500 ML IV ONE (11:00)
[2020-08-20] MEDS: busPIRone 5 MG TAB PO SCH (20:35)
[2020-08-20] MEDS: MELATONIN 3 MG TAB PO SCH (20:35)
[2020-08-20] MEDS: busPIRone 5 MG TAB PO PRN (23:43)
[2020-08-21 06:04] LABS: Hematocrit (blood only) 31.4 % (37-47); Hemoglobin 10.1 g/dL (12.0-16.0); Mean Corpuscular Hemoglobin 25.3 pg (25-34); Mean Corpuscular Hgb Conc 32.2 g/dL (32-36); Mean Corpuscular Volume 78.7 fL (80-100); Mean Platelet Volume 8.7 fL (7.4-10.4); Platelet Count 128 K/uL (130-400); RDW Standard Deviation 43.3 fL (36.4-46.3); Red Blood Count 3.99 M/uL (4.2-5.4); White Blood Count 3.95 K/uL (4.8-10.8)
[2020-08-21 06:28] LABS: Albumin Level 2.4 gm/dl (3.4-5.0); BUN Creatinine Ratio 11.2 (10-20); Calcium 7.2 mg/dl (8.5-10.1); Creatinine Clr Calc Pharmacy 134.6 ml/min; Est GFR (African American) 128.3; Est GFR (Non-African American) 110.7; Magnesium 2.3 mg/dl (1.8-2.4); Potassium 3.3 mmol/L (3.5-5.1)
[2020-08-21 06:47] LABS: Albumin Globulin Ratio 0.5 (0.9-2); Bilirubin,Total 0.8 mg/dl (0.2-1); Globulin 4.7 gm/dl (2.5-4.0); Phosphorus 2.9 mg/dl (2.5-4.9); Total Protein 7.1 gm/dl (6.4-8.2)
[2020-08-21] MEDS: ALBUTEROL HFA 8 GM INHALER INH SCH ×4 (07:26→19:53)
[2020-08-21] MEDS: IPRATROPIUM BROMIDE HFA INHALER INH SCH ×4 (07:26→19:53)
--- NOTE | 2020-08-21 07:27 | Hospitalist Progress Note ---
Date of Service August 21, 2020 Assessment & Plan (1) Pneumonia due to 2019 novel coronavirus: up slightly to 10L today but no distress at all, says she feels better than yesterday Continue decadron 6mg daily x 10 days - today is day #5 Patient was about 10-12 days into her illness on admission - plasma and remdesivir deferred. Continue self-proning Try to prone 4-5x's each day as long as possible, she is compliant Cont flutter valve. Cont incentive. Cont supportive care. CXR 3 with worsening infiltrates Added combivent inhaler + mucinex Of note - CTA at time of admission negative for PE. anticipate her being here the rest of the week if not longer, might require more oxygen before she fully recovers (2) Acute respiratory failure with hypoxia: 2nd COVID-19 pneumonia. procalcitonin 3 is negative No evidence of complicating CHF or PE. Dimer noted; again CTA chest at admission neg for PE. stable on 10L wall high flow today, subjectively she feels better than yesterday which is a good sign (3) Diabetes mellitus type 2, uncontrolled: new diagnosis but was dx with pre-DM about 2-3 years ago DM education consult appreciated PM lantus 20 units AM lantus 25 units Novolog SS, monitor for hypoglycemia at discharge would use metformin 500mg BID (4) Pancytopenia: WBC count 3.9k Hb stable at 10 Platelets 128k likely 2nd to COVID-19 infection TSH, folate wnl b12 low-normal -- replace (5) Hypomagnesemia: replaced and resolved (6) Hypokalemia: low at 3.3, give 20mEq KCl BID (7) Hypophosphatemia: stop oral K-phos neutral phos normal today after KPhos IV yesterday (8) Anxiety: buspar scheduled at HS due to significant night-time anxiety leading to insomnia melatonin HS prn (9) Hepatosplenomegaly: as seen on imaging could be 2nd to COVID-19 infection could be primary liver disease ultimately will need dedicated abd u/s recent ast/alt were wnl recent alk phos nearly normal (10) B12 deficiency: started oral B12 -- 1000mcg daily level was 289 (11) Candidiasis of mouth and esophagus: nystatin 5cc ac/hs swish/spit (12) DVT prophylaxis: due to higher risk of VTE with COVID - continue lovenox 40mg BID Admission and Anticipated Discharge Date Admission Date: August 16, 2020 Subjective patient says she feels better this morning, she feels like for the first time she feels like she will be going home at some time she is optimistic about her recovery she says she is breathing easier, less coughing, she says she had a good night she is stable on 10L wall high flow, 93-98%, using incentive spirometer and flutter valve, laying prone encouraged her to lay prone as much as she can, she will comply reviewed labs, K is low at 3.3, Cr normal, WBC, Hb and plts all slightly low she is asking how long she will be hospitalized, I told her to expect to be here all week, she was a little discouraged by this reminded her that COVID is a marathon, one day at a time, she will get better Review of Systems Review of Systems: All systems reviewed & are unremarkable except as noted in Subjective Constitutional: + chills; no fever, no sweats, no fatigue and no weakness Respiratory: + cough, + dyspnea and + dyspnea on exertion; no sputum production and no wheezing Cardiovascular: no chest pain Gastrointestinal: no abdominal pain, no nausea, no vomiting, no constipation and no diarrhea/loose stools Physical Exam Constitutional: WD/WN, vitals as above + ill appearing and + overweight; no acute distress Neck: trachea midline, no thyromegaly Respiratory: normal respiratory effort, lungs clear to auscultation Cardiovascular: Rate/Rhythm: regular rhythm and + tachycardic Heart Sounds: normal S1 and normal S2; no murmur Vessels: no JVD Extremities: normal capillary refill; no edema Gastrointestinal (Abdomen): normal bowel sounds, soft, nontender, no hepatosplenomegaly Musculoskeletal: no cyanosis or clubbing, extremities motor strength 5/5 Skin: no rashes, warm and dry Neurologic: patellar DTR's 2+ bilat, sensation intact and PERRL, EOMI, accommodation nl, no face palsy, no dysarthria Psychiatric: Orientation: alert and oriented x 3 Affect: + anxious affect Lymphatic: no cervical or axillary lymphadenopathy Results & Data Results & Data ([facility]) Vital Signs (Past 12 Hours) Vital Signs Temp Pulse Resp BP Pulse Ox 08/21/20 04:03 36.9 C 94 H 20 155/85 H 98 08/20/20 23:08 36.6 C 98 H 19 121/75 91 Laboratory Results Laboratory Results - last 24 hr 08/20/20 08/20/20 08/20/20 08:19 08:43 08:43 WBC 6.23 RBC 4.37 Hgb 11.1 L Hct 34.3 L MCV 78.5 L MCH 25.4 MCHC 32.4 RDW Std Deviation 44.3 RDW Coeff of Radha 15.5 H Plt Count 163 MPV 9.6 Immature Gran % (Auto) 1.3 Neut % (Auto) 74.8 Lymph % (Auto) 19.3 Summers % (Auto) 4.3 Eos % (Auto) 0.0 Baso % (Auto) 0.3 Neut # (Auto) 4.66 Lymph # (Auto) 1.20 Summers # (Auto) 0.27 Eos # (Auto) 0.00 Baso # (Auto) 0.02 Immature Gran # (Auto) 0.08 H Sodium 143 Potassium 3.4 L D Chloride 107 Carbon Dioxide 23 Anion Gap 13.0 H BUN 6 L Creatinine 0.55 L Est Cr Clr Drug Dosing 129.7 Est GFR ( Amer) 126.8 Est GFR (Non-Af Amer) 109.4 BUN/Creatinine Ratio 10.4 Glucose 146 H POC Glucose 149 H Calcium 8.1 L Phosphorus 2.3 L Magnesium Total Bilirubin AST ALT Alkaline Phosphatase Total Creatine Kinase 113 Total Protein Albumin Globulin Albumin/Globulin Ratio Procalcitonin 08/20/20 08/20/20 08/20/20 08:43 11:04 16:24 WBC RBC Hgb Hct MCV MCH MCHC RDW Std Deviation RDW Coeff of Radha Plt Count MPV Immature Gran % (Auto) Neut % (Auto) Lymph % (Auto) Summers % (Auto) Eos % (Auto) Baso % (Auto) Neut # (Auto) Lymph # (Auto) Summers # (Auto) Eos # (Auto) Baso # (Auto) Immature Gran # (Auto) Sodium Potassium Chloride Carbon Dioxide Anion Gap BUN Creatinine Est Cr Clr Drug Dosing Est GFR ( Amer) Est GFR (Non-Af Amer) BUN/Creatinine Ratio Glucose POC Glucose 162 H 223 H Calcium Phosphorus Magnesium Total Bilirubin AST ALT Alkaline Phosphatase Total Creatine Kinase Total Protein Albumin Globulin Albumin/Globulin Ratio Procalcitonin 0.08 08/20/20 08/21/20 08/21/20 20:35 05:39 05:39 WBC 3.95 L RBC 3.99 L Hgb 10.1 L Hct 31.4 L MCV 78.7 L MCH 25.3 MCHC 32.2 RDW Std Deviation 43.3 RDW Coeff of Radha 15.0 H Plt Count 128 L MPV 8.7 Immature Gran % (Auto) Neut % (Auto) Lymph % (Auto) [place] % (Auto) Eos % (Auto) Baso % (Auto) Neut # (Auto) Lymph # (Auto) Summers # (Auto) Eos # (Auto) Baso # (Auto) Immature Gran # (Auto) Sodium 143 Potassium 3.3 L Chloride 110 H Carbon Dioxide 26 Anion Gap 7.0 BUN 6 L Creatinine 0.53 L Est Cr Clr Drug Dosing 134.6 Est GFR ( Amer) 128.3 Est GFR (Non-Af Amer) 110.7 BUN/Creatinine Ratio 11.2 Glucose 152 H POC Glucose 207 H Calcium 7.2 L Phosphorus 2.9 Magnesium 2.3 Total Bilirubin 0.8 AST 32 ALT 8 L Alkaline Phosphatase 116 Total Creatine Kinase Total Protein 7.1 Albumin 2.4 L Globulin 4.7 H Albumin/Globulin Ratio 0.5 L Procalcitonin Medications Administered Current Inpatient Medications Acetaminophen (Acetaminophen 325 Mg Tab) 650 mg PO Q4H PRN PRN Reason: Pain or Fever Stop: 09/15/20 03:18 Last Admin: 08/18/20 21:06 Dose: 650 mg Documented by: Albuterol (Albuterol Hfa 8 Gm Inhaler) 1 puffs INH QIDR [facility] Stop: 09/18/20 09:14 Last Admin: 08/21/20 07:26 Dose: 1 puffs Documented by: Benzonatate (Benzonatate 100 Mg Capsule) 100 mg PO Q8H PRN PRN Reason: Cough Stop: 09/15/20 02:19 Last Admin: 08/18/20 21:06 Dose: 100 mg Documented by: Buspirone HCl (Buspirone 5 Mg Tab) 5 mg PO BID PRN PRN Reason: Anxiety Stop: 09/15/20 20:59 Last Admin: 08/20/20 23:43 Dose: 5 mg Documented by: Buspirone HCl (Buspirone 5 Mg Tab) 5 mg PO HS [facility] Stop: 09/18/20 20:59 Last Admin: 08/20/20 20:35 Dose: 5 mg Documented by: Cyanocobalamin (Cyanocobalamin 500 Mcg Tablet (Vitamin B-12)) 1,000 mcg PO QAM [facility] Stop: 09/16/20 08:59 Last Admin: 08/20/20 08:27 Dose: 1,000 mcg Documented by: Dexamethasone (Dexamethasone 4 Mg Tab) 6 mg PO QAM [facility] Stop: 09/16/20 08:59 Last Admin: 08/20/20 08:25 Dose: 6 mg Documented by: Dextrose (Dextrose 50% 50 Ml Syringe) 25 - 50 ml IV UD PRN; Protocol PRN Reason: Hypoglycemia Protocol Stop: 09/15/20 02:19 Enoxaparin Sodium (Enoxaparin Inj 40 Mg/0.4 Ml Syr) 40 mg SQ Q12 [facility] Stop: 09/15/20 08:59 Last Admin: 08/20/20 20:35 Dose: 40 mg Documented by: Famotidine (Famotidine 20 Mg Tab) 20 mg PO BID [facility] Stop: 09/16/20 08:59 Last Admin: 08/20/20 20:38 Dose: 20 mg Documented by: Glucagon (Glucagon For Inj 1 Mg Vial) 1 mg SQ UD PRN; Protocol PRN Reason: Hypoglycemia Protocol Stop: 09/15/20 02:19 Glucose (Glucose 10 Tabs/Tube) 4 - 8 tabs PO UD PRN; Protocol PRN Reason: Hypoglycemia Protocol Stop: 09/15/20 02:19 Glucose (Glucose 40% Gel 15 Gm Tube) 15 - 30 gm PO UD PRN; Protocol PRN Reason: Hypoglycemia Protocol Stop: 09/15/20 02:19 Guaifenesin (Guaifenesin 600 Mg Tabcr) 1,200 mg PO Q12 [facility] Stop: 09/18/20 20:59 Last Admin: 08/20/20 20:37 Dose: 1,200 mg Documented by: Insulin Aspart (Insulin Aspart 100 Units/Ml 3 Ml Pen) 0 units SC ACHS [facility] Stop: 09/15/20 16:29 Last Admin: 08/20/20 20:43 Dose: 4 units Documented by: Insulin Glargine (Insulin Glargine Solostar 100 Units/Ml 3 Ml Pen) 20 units SC HS [facility] Stop: 09/18/20 20:59 Last Admin: 08/20/20 20:43 Dose: 20 units Documented by: Insulin Glargine (Insulin Glargine Solostar 100 Units/Ml 3 Ml Pen) 25 units SC QAM [facility] Stop: 09/19/20 08:59 Last Admin: 08/20/20 09:23 Dose: 25 units Documented by: Ipratropium [place] (Ipratropium [place] Hfa Inhaler) 1 puffs INH QIDR [facility] Stop: 09/18/20 09:14 Last Admin: 08/21/20 07:26 Dose: 1 puffs Documented by: Melatonin (Melatonin 3 Mg Tab) 3 mg PO HS [facility] Stop: 09/17/20 20:59 Last Admin: 08/20/20 20:35 Dose: 3 mg Documented by: Miscellaneous (Carbohydrates For Hypoglycemia ) 15 - 30 gm PO UD PRN PRN Reason: Hypoglycemia Protocol Stop: 09/15/20 02:19 Nystatin (Nystatin Susp 500,000 U/5 Ml Udc) 5 ml PO QID [facility] Stop: 08/27/20 20:59 Last Admin: 08/20/20 20:36 Dose: 5 ml Documented by: Potassium Chloride (Potassium Chloride Crtab 20 Meq Tabcr) 20 meq PO BID [facility] Stop: 09/20/20 08:59 Sodium Chloride (Sodium Chloride 0.65% Na Soln 45 Ml ([place])) 1 sprays NA PRN PRN PRN Reason: Congestion Stop: 09/19/20 06:08 Last Admin: 08/20/20 06:15 Dose: 1 sprays Documented by: PG Care Time/CCT Total # of Minutes Spent Total Time Spent with Patient: Total time spent is greater than 50% in coordination of care (as documented) at patient's floor/unit and/or counseling patient: Coding Level of Care Code 61049 Subseq Hosp Care Lvl 3 Diagnoses Pneumonia due to 2019 novel coronavirus U07.1; J12.82 Acute respiratory failure with hypoxia J96.01 Diabetes mellitus type 2, uncontrolled E11.65 Glycemic state: with hyperglycemia Pancytopenia D61.818 Hypomagnesemia E83.42 Hypokalemia E87.6 Hypophosphatemia E83.39 Anxiety F41.9 Hepatosplenomegaly R16.2 B12 deficiency E53.8 Candidiasis of mouth and esophagus B37.81; B37.0 DVT prophylaxis Z29.9 (1) Diabetes mellitus type 2, uncontrolled Glycemic state: with hyperglycemia Qualified Code(s): E11.65 - Type 2 diabetes mellitus with hyperglycemia
[2020-08-21] MEDS: INSULIN ASPART 100 UNITS/ML 3 ML PEN SC SCH ×4 (08:30→20:52)
[2020-08-21] MEDS: INSULIN GLARGINE SOLOSTAR 100 UNITS/ML 3 ML PEN SC SCH ×2 (08:30→20:52)
[2020-08-21] MEDS: dexAMETHasone 4 MG TAB PO SCH (08:57)
[2020-08-21] MEDS: CYANOCOBALAMIN 500 MCG TABLET (VITAMIN B-12) PO SCH (08:57)
[2020-08-21] MEDS: POTASSIUM CHLORIDE CRTAB 20 MEQ TABCR PO SCH ×2 (08:58→20:18)
[2020-08-21] MEDS: NYSTATIN SUSP 500,000 U/5 ML UDC PO SCH ×4 (08:58→20:17)
[2020-08-21] MEDS: FAMOTIDINE 20 MG TAB PO SCH ×2 (08:58→20:17)
[2020-08-21] MEDS: guaiFENesin 600 MG TABCR PO SCH ×2 (08:58→20:19)
[2020-08-21] MEDS: ENOXAPARIN INJ 40 MG/0.4 ML SYR SQ SCH ×2 (08:59→20:17)
[2020-08-21] MEDS: MELATONIN 3 MG TAB PO SCH (20:17)
[2020-08-21] MEDS: busPIRone 5 MG TAB PO SCH (20:17)
[2020-08-22] MEDS: ALBUTEROL HFA 8 GM INHALER INH SCH ×2 (07:39→11:55)
[2020-08-22] MEDS: IPRATROPIUM BROMIDE HFA INHALER INH SCH ×2 (07:40→11:55)
[2020-08-22 08:08] LABS: Hematocrit (blood only) 35.3 % (37-47); Hemoglobin 11.5 g/dL (12.0-16.0); Mean Corpuscular Hemoglobin 25.7 pg (25-34); Mean Corpuscular Hgb Conc 32.6 g/dL (32-36); Mean Corpuscular Volume 78.8 fL (80-100); Mean Platelet Volume 9.3 fL (7.4-10.4); Platelet Count 212 K/uL (130-400); RDW Coefficient of Variation 15.3 % (11.5-14.5); Red Blood Count 4.48 M/uL (4.2-5.4); White Blood Count 6.67 K/uL (4.8-10.8)
[2020-08-22 08:21] LABS: BUN Creatinine Ratio 11.4 (10-20); Calcium 8.7 mg/dl (8.5-10.1); Creatinine Clr Calc Pharmacy 118.9 ml/min; Est GFR (African American) 123.2; Est GFR (Non-African American) 106.3; Magnesium 2.4 mg/dl (1.8-2.4); Phosphorus 2.5 mg/dl (2.5-4.9); Potassium 3.1 mmol/L (3.5-5.1)
[2020-08-22] MEDS: dexAMETHasone 4 MG TAB PO SCH (08:56)
[2020-08-22] MEDS: POTASSIUM CHLORIDE CRTAB 20 MEQ TABCR PO SCH ×3 (08:57→20:53)
[2020-08-22] MEDS: guaiFENesin 600 MG TABCR PO SCH ×2 (08:57→20:53)
[2020-08-22] MEDS: FAMOTIDINE 20 MG TAB PO SCH ×2 (08:57→20:53)
[2020-08-22] MEDS: busPIRone 5 MG TAB PO PRN (08:58)
[2020-08-22] MEDS: CYANOCOBALAMIN 500 MCG TABLET (VITAMIN B-12) PO SCH (08:59)
[2020-08-22] MEDS: NYSTATIN SUSP 500,000 U/5 ML UDC PO SCH ×4 (08:59→20:53)
[2020-08-22] MEDS: ENOXAPARIN INJ 40 MG/0.4 ML SYR SQ SCH ×2 (09:00→20:53)
[2020-08-22] MEDS: INSULIN ASPART 100 UNITS/ML 3 ML PEN SC SCH ×4 (09:00→20:37)
--- NOTE | 2020-08-22 09:21 | Hospitalist Progress Note ---
Date of Service August 22, 2020 Assessment & Plan (1) Pneumonia due to 2019 novel coronavirus: down to 7L today, feeling better each day, when prone she is 96% Continue decadron 6mg daily x 10 days - today is day #6 Patient was about 10-12 days into her illness on admission - plasma and remdes ivir deferred. Continue self-proning she is very compliant Cont flutter valve. Cont incentive. Cont supportive care. CXR 08/20 with worsening infiltrates Added combivent inhaler + mucinex Of note - CTA at time of admission negative for PE. she hopes to go home this weekend, might be possible, too early to tell (2) Acute respiratory failure with hypoxia: 2nd COVID-19 pneumonia. procalcitonin 08/20 is negative No evidence of complicating CHF or PE. Dimer noted; again CTA chest at admission neg for PE. stable on 7L wall high flow today, subjectively she feels a lot better than two days ago (3) Diabetes mellitus type 2, uncontrolled: new diagnosis but was dx with pre-DM about 2-3 years ago DM education consult appreciated PM lantus 20 units AM lantus 25 units Novolog SS, monitor for hypoglycemia, no episodes at discharge would use metformin 500mg BID (4) Pancytopenia: WBC count up to 6 Hb stable at 11 Platelets 212k likely 2nd to COVID-19 infection TSH, folate wnl b12 low-normal -- replace (5) Hypomagnesemia: replaced and resolved (6) Hypokalemia: low at 3.1, give 20mEq KCl, increase to TID dosing (7) Hypophosphatemia: stop oral K-phos neutral phos normal today (8) Anxiety: buspar scheduled at HS due to significant night-time anxiety leading to insomnia melatonin HS prn (9) Hepatosplenomegaly: as seen on imaging could be 2nd to COVID-19 infection could be primary liver disease ultimately will need dedicated abd u/s recent ast/alt were wnl recent alk phos nearly normal (10) B12 deficiency: started oral B12 -- 1000mcg daily level was 289 (11) Candidiasis of mouth and esophagus: nystatin 5cc ac/hs swish/spit (12) DVT prophylaxis: due to higher risk of VTE with COVID - continue lovenox 40mg BID Admission and Anticipated Discharge Date Admission Date: August 16, 2020 Subjective patient says she is feeling much better, down to 6L, she is prone and is 96% she ate a good breakfast, no issues with nausea or diarrhea reviewed labs, K is 3.1, will increase to TID replacement no chest pain, less coughing, no fever/chills WBC 6k, Hb 11, plts 212, phos and magnesium normal she is much more optimistic, she hopes to go home this weekend, told her that might be possible, see how the next few days go Review of Systems Review of Systems: All systems reviewed & are unremarkable except as noted in Subjective Physical Exam Constitutional: WD/WN, vitals as above + overweight; no acute distress Neck: trachea midline, no thyromegaly Respiratory: normal respiratory effort, lungs clear to auscultation Cardiovascular: Rate/Rhythm: regular rate and regular rhythm Heart Sounds: normal S1 and normal S2; no murmur Vessels: no JVD Extremities: normal capillary refill; no edema Gastrointestinal (Abdomen): normal bowel sounds, soft, nontender, no hepatosplenomegaly Musculoskeletal: no cyanosis or clubbing, extremities motor strength 5/5 Skin: no rashes, warm and dry Neurologic: patellar DTR's 2+ bilat, sensation intact and PERRL, EOMI, accommodation nl, no face palsy, no dysarthria Psychiatric: Orientation: alert and oriented x 3 Lymphatic: no cervical or axillary lymphadenopathy Results & Data Results & Data ([facility]) Vital Signs (Past 12 Hours) Vital Signs Temp Pulse Pulse Resp BP Pulse Ox 08/22/20 07:52 36.6 C 101 H 22 118/76 90 08/22/20 07:42 99 H 16 93 08/22/20 03:26 36.6 C 93 H 18 140/82 93 08/22/20 00:39 36.5 C 98 H 20 118/79 93 08/22/20 00:19 76 Laboratory Results Laboratory Results - last 24 hr 08/21/20 08/21/20 08/21/20 11:52 16:00 20:25 WBC RBC Hgb Hct MCV MCH MCHC RDW Std Deviation RDW Coeff of Radha Plt Count MPV Sodium Potassium Chloride Carbon Dioxide Anion Gap BUN Creatinine Est Cr Clr Drug Dosing Est GFR ( Amer) Est GFR (Non-Af Amer) BUN/Creatinine Ratio Glucose POC Glucose 134 H 164 H 270 H Calcium Phosphorus Magnesium 08/22/20 08/22/20 08/22/20 07:05 07:05 07:50 WBC 6.67 RBC 4.48 Hgb 11.5 L Hct 35.3 L MCV 78.8 L MCH 25.7 MCHC 32.6 RDW Std Deviation 44.0 RDW Coeff of Radha 15.3 H Plt Count 212 D MPV 9.3 Sodium 141 Potassium 3.1 L Chloride 107 Carbon Dioxide 24 Anion Gap 10.0 BUN 7 Creatinine 0.60 Est Cr Clr Drug Dosing 118.9 Est GFR ( Amer) 123.2 Est GFR (Non-Af Amer) 106.3 BUN/Creatinine Ratio 11.4 Glucose 116 H POC Glucose 129 H Calcium 8.7 D Phosphorus 2.5 Magnesium 2.4 Medications Administered Current Inpatient Medications Acetaminophen (Acetaminophen 325 Mg Tab) 650 mg PO Q4H PRN PRN Reason: Pain or Fever Stop: 09/15/20 03:18 Last Admin: 08/18/20 21:06 Dose: 650 mg Documented by: Albuterol (Albuterol Hfa 8 Gm Inhaler) 1 puffs INH QIDR [facility] Stop: 09/18/20 09:14 Last Admin: 08/22/20 07:39 Dose: 1 puffs Documented by: Benzonatate (Benzonatate 100 Mg Capsule) 100 mg PO Q8H PRN PRN Reason: Cough Stop: 09/15/20 02:19 Last Admin: 08/18/20 21:06 Dose: 100 mg Documented by: Buspirone HCl (Buspirone 5 Mg Tab) 5 mg PO BID PRN PRN Reason: Anxiety Stop: 09/15/20 20:59 Last Admin: 08/22/20 08:58 Dose: 5 mg Documented by: Buspirone HCl (Buspirone 5 Mg Tab) 5 mg PO [facility] Stop: 09/18/20 20:59 Last Admin: 08/21/20 20:17 Dose: 5 mg Documented by: Cyanocobalamin (Cyanocobalamin 500 Mcg Tablet (Vitamin B-12)) 1,000 mcg PO [facility] Stop: 09/16/20 08:59 Last Admin: 08/22/20 08:59 Dose: 1,000 mcg Documented by: Dexamethasone (Dexamethasone 4 Mg Tab) 6 mg PO [facility] Stop: 09/16/20 08:59 Last Admin: 08/22/20 08:56 Dose: 6 mg Documented by: Dextrose (Dextrose 50% 50 Ml Syringe) 25 - 50 ml IV UD PRN; Protocol PRN Reason: Hypoglycemia Protocol Stop: 09/15/20 02:19 Enoxaparin Sodium (Enoxaparin Inj 40 Mg/0.4 Ml Syr) 40 mg SQ Q12 [facility] Stop: 09/15/20 08:59 Last Admin: 08/22/20 09:00 Dose: 40 mg Documented by: Famotidine (Famotidine 20 Mg Tab) 20 mg PO BID [facility] Stop: 09/16/20 08:59 Last Admin: 08/22/20 08:57 Dose: 20 mg Documented by: Glucagon (Glucagon For Inj 1 Mg Vial) 1 mg SQ UD PRN; Protocol PRN Reason: Hypoglycemia Protocol Stop: 09/15/20 02:19 Glucose (Glucose 10 Tabs/Tube) 4 - 8 tabs PO UD PRN; Protocol PRN Reason: Hypoglycemia Protocol Stop: 09/15/20 02:19 Glucose (Glucose 40% Gel 15 Gm Tube) 15 - 30 gm PO UD PRN; Protocol PRN Reason: Hypoglycemia Protocol Stop: 09/15/20 02:19 Guaifenesin (Guaifenesin 600 Mg Tabcr) 1,200 mg PO Q12 [facility] Stop: 09/18/20 20:59 Last Admin: 08/22/20 08:57 Dose: 1,200 mg Documented by: Insulin Aspart (Insulin Aspart 100 Units/Ml 3 Ml Pen) 0 units SC ACHS [facility] Stop: 09/15/20 16:29 Last Admin: 08/21/20 20:52 Dose: 10 units Documented by: Insulin Glargine (Insulin Glargine Solostar 100 Units/Ml 3 Ml Pen) 20 units SC HS [facility] Stop: 09/18/20 20:59 Last Admin: 08/21/20 20:52 Dose: 20 units Documented by: Insulin Glargine (Insulin Glargine Solostar 100 Units/Ml 3 Ml Pen) 25 units SC QAM [facility] Stop: 09/19/20 08:59 Last Admin: 08/21/20 08:30 Dose: 25 units Documented by: Ipratropium [place] (Ipratropium [place] Hfa Inhaler) 1 puffs INH QIDR [facility] Stop: 09/18/20 09:14 Last Admin: 08/22/20 07:40 Dose: 1 puffs Documented by: Melatonin (Melatonin 3 Mg Tab) 3 mg PO HS [facility] Stop: 09/17/20 20:59 Last Admin: 08/21/20 20:17 Dose: 3 mg Documented by: Miscellaneous (Carbohydrates For Hypoglycemia ) 15 - 30 gm PO UD PRN PRN Reason: Hypoglycemia Protocol Stop: 09/15/20 02:19 Nystatin (Nystatin Susp 500,000 U/5 Ml Udc) 5 ml PO QID [facility] Stop: 08/27/20 20:59 Last Admin: 08/22/20 08:59 Dose: 5 ml Documented by: Potassium Chloride (Potassium Chloride Crtab 20 Meq Tabcr) 20 meq PO TID [facility] Stop: 09/21/20 13:59 Sodium Chloride (Sodium Chloride 0.65% Na Soln 45 Ml ([place])) 1 sprays NA PRN PRN PRN Reason: Congestion Stop: 09/19/20 06:08 Last Admin: 08/20/20 06:15 Dose: 1 sprays Documented by: PG Care Time/CCT Total # of Minutes Spent Total Time Spent with Patient: Total time spent is greater than 50% in coordination of care (as documented) at patient's floor/unit and/or counseling patient: Coding Level of Care Code 01190 Subseq Hosp Care Lvl 3 Diagnoses Pneumonia due to 2019 novel coronavirus U07.1; J12.82 Acute respiratory failure with hypoxia J96.01 Diabetes mellitus type 2, uncontrolled E11.65 Glycemic state: with hyperglycemia Pancytopenia D61.818 Hypomagnesemia E83.42 Hypokalemia E87.6 Hypophosphatemia E83.39 Anxiety F41.9 Hepatosplenomegaly R16.2 B12 deficiency E53.8 Candidiasis of mouth and esophagus B37.81; B37.0 DVT prophylaxis Z29.9 (1) Diabetes mellitus type 2, uncontrolled Glycemic state: with hyperglycemia Qualified Code(s): E11.65 - Type 2 diabetes mellitus with hyperglycemia
[2020-08-22] MEDS: INSULIN GLARGINE SOLOSTAR 100 UNITS/ML 3 ML PEN SC SCH ×2 (09:40→20:36)
[2020-08-22] MEDS ORDERED: IPRATROPIUM BROMIDE HFA INHALER INH PRN (13:21)
[2020-08-22] MEDS ORDERED: ALBUTEROL HFA 8 GM INHALER INH PRN (13:21)
[2020-08-22] MEDS: busPIRone 5 MG TAB PO SCH (20:53)
[2020-08-22] MEDS: MELATONIN 3 MG TAB PO SCH (20:53)
[2020-08-23 07:03] LABS: BUN Creatinine Ratio 19.9 (10-20); Calcium 8.3 mg/dl (8.5-10.1); Creatinine Clr Calc Pharmacy 132.1 ml/min; Est GFR (African American) 127.5; Potassium 3.6 mmol/L (3.5-5.1)
[2020-08-23] MEDS: guaiFENesin 600 MG TABCR PO SCH ×2 (08:24→21:44)
[2020-08-23] MEDS: dexAMETHasone 4 MG TAB PO SCH (08:24)
[2020-08-23] MEDS: POTASSIUM CHLORIDE CRTAB 20 MEQ TABCR PO SCH ×3 (08:25→21:46)
[2020-08-23] MEDS: CYANOCOBALAMIN 500 MCG TABLET (VITAMIN B-12) PO SCH (08:25)
[2020-08-23] MEDS: NYSTATIN SUSP 500,000 U/5 ML UDC PO SCH ×4 (08:26→21:46)
[2020-08-23] MEDS: FAMOTIDINE 20 MG TAB PO SCH ×2 (08:26→21:43)
[2020-08-23] MEDS: ENOXAPARIN INJ 40 MG/0.4 ML SYR SQ SCH ×2 (08:27→21:45)
[2020-08-23] MEDS: INSULIN GLARGINE SOLOSTAR 100 UNITS/ML 3 ML PEN SC SCH ×2 (09:15→21:34)
[2020-08-23] MEDS: INSULIN ASPART 100 UNITS/ML 3 ML PEN SC SCH ×4 (09:15→21:34)
--- NOTE | 2020-08-23 09:43 | Hospitalist Progress Note ---
Date of Service August 23, 2020 Assessment & Plan (1) Pneumonia due to 2019 novel coronavirus: down to 2-3L today, feels great, was even on room air for a while and was 87-88% plan for two step tomorrow and probable discharge tomorrow afternoon once oxygen arranged Continue decadron 6mg daily x 10 days - today is day #7 Continue self-proning she is very compliant Cont flutter valve. Cont incentive. Cont supportive care. CXR 08/20 with worsening infiltrates Added combivent inhaler + mucinex Of note - CTA at time of admission negative for PE. (2) Acute respiratory failure with hypoxia: 2nd COVID-19 pneumonia. procalcitonin 08/20 is negative No evidence of complicating CHF or PE. Dimer noted; again CTA chest at admission neg for PE. stable on 2-3L NC today, no dyspnea, no cough plan for two step tomorrow morning as she feels great and recovering quickly (3) Diabetes mellitus type 2, uncontrolled: new diagnosis but was dx with pre-DM about 2-3 years ago DM education consult appreciated PM lantus 20 units AM lantus 25 units Novolog SS, monitor for hypoglycemia, no episodes at discharge would use metformin 500mg BID (4) Pancytopenia: WBC count up to 6 Hb stable at 11 Platelets 212k likely 2nd to COVID-19 infection TSH, folate wnl b12 low-normal -- replace (5) Hypomagnesemia: replaced and resolved (6) Hypokalemia: up to 3.6 today, continue 20mEq KCl BID (7) Hypophosphatemia: stop oral K-phos neutral phos normal on 08/22 (8) Anxiety: buspar scheduled at HS due to significant night-time anxiety leading to insomnia melatonin HS prn (9) Hepatosplenomegaly: as seen on imaging could be 2nd to COVID-19 infection could be primary liver disease ultimately will need dedicated abd u/s but this can be done as outpatient when virus is resolved recent ast/alt were wnl recent alk phos nearly normal (10) B12 deficiency: started oral B12 -- 1000mcg daily level was 289 (11) Candidiasis of mouth and esophagus: nystatin 5cc ac/hs swish/spit (12) DVT prophylaxis: due to higher risk of VTE with COVID - continue lovenox 40mg BID Admission and Anticipated Discharge Date Admission Date: August 16, 2020 Subjective patient sitting up in a chair, finishing her lunch, she says she feels great she wants to go home today because she feels so good, she was half joking but I told her that I think tomorrow is a definite for discharge and she started to cry she was so happy discussed getting a 2 step tomorrow and setting up home oxygen, she agreed she is eating well, sleeping well, no cough, no fever K is 3.6 today, Cr 0.54 Review of Systems Review of Systems: All systems reviewed & are unremarkable except as noted in Subjective Physical Exam Constitutional: WD/WN, vitals as above + overweight; no acute distress Neck: trachea midline, no thyromegaly Respiratory: normal respiratory effort, lungs clear to auscultation Cardiovascular: Rate/Rhythm: regular rate and regular rhythm Heart Sounds: normal S1 and normal S2; no murmur Vessels: no JVD Extremities: normal capillary refill; no edema Gastrointestinal (Abdomen): normal bowel sounds, soft, nontender, no hepatosplenomegaly Musculoskeletal: no cyanosis or clubbing, extremities motor strength 5/5 Skin: no rashes, warm and dry Neurologic: patellar DTR's 2+ bilat, sensation intact and PERRL, EOMI, accommodation nl, no face palsy, no dysarthria Psychiatric: Orientation: alert and oriented x 3 Lymphatic: no cervical or axillary lymphadenopathy Results & Data Results & Data ([facility]) Vital Signs (Past 12 Hours) Vital Signs Temp Pulse Pulse Resp BP Pulse Ox 08/23/20 02:54 36.9 C 76 18 111/74 96 08/22/20 23:09 36.5 C 85 22 118/75 90 08/22/20 22:48 84 Laboratory Results Laboratory Results - last 24 hr 08/22/20 08/22/20 08/22/20 11:56 16:47 20:29 Sodium Potassium Chloride Carbon Dioxide Anion Gap BUN Creatinine Est Cr Clr Drug Dosing Est GFR ( Amer) Est GFR (Non-Af Amer) BUN/Creatinine Ratio Glucose POC Glucose 208 H 211 H 263 H Calcium 08/23/20 08/23/20 05:58 07:48 Sodium 140 Potassium 3.6 D Chloride 108 H Carbon Dioxide 24 Anion Gap 7.0 BUN 11 D Creatinine 0.54 L Est Cr Clr Drug Dosing 132.1 Est GFR ( Amer) 127.5 Est GFR (Non-Af Amer) 110.0 BUN/Creatinine Ratio 19.9 Glucose 104 H POC Glucose 101 H Calcium 8.3 L Medications Administered Current Inpatient Medications Acetaminophen (Acetaminophen 325 Mg Tab) 650 mg PO Q4H PRN PRN Reason: Pain or Fever Stop: 09/15/20 03:18 Last Admin: 08/18/20 21:06 Dose: 650 mg Documented by: Albuterol (Albuterol Hfa 8 Gm Inhaler) 1 puffs INH Q4R PRN PRN Reason: Shortness Of Breath Or Wheezing Stop: 09/21/20 13:19 Benzonatate (Benzonatate 100 Mg Capsule) 100 mg PO Q8H PRN PRN Reason: Cough Stop: 09/15/20 02:19 Last Admin: 08/18/20 21:06 Dose: 100 mg Documented by: Buspirone HCl (Buspirone 5 Mg Tab) 5 mg PO BID PRN PRN Reason: Anxiety Stop: 09/15/20 20:59 Last Admin: 08/22/20 08:58 Dose: 5 mg Documented by: Buspirone HCl (Buspirone 5 Mg Tab) 5 mg PO HS [facility] Stop: 09/18/20 20:59 Last Admin: 08/22/20 20:53 Dose: 5 mg Documented by: Cyanocobalamin (Cyanocobalamin 500 Mcg Tablet (Vitamin B-12)) 1,000 mcg PO QAM [facility] Stop: 09/16/20 08:59 Last Admin: 08/23/20 08:25 Dose: 1,000 mcg Documented by: Dexamethasone (Dexamethasone 4 Mg Tab) 6 mg PO QAM [facility] Stop: 09/16/20 08:59 Last Admin: 08/23/20 08:24 Dose: 6 mg Documented by: Dextrose (Dextrose 50% 50 Ml Syringe) 25 - 50 ml IV UD PRN; Protocol PRN Reason: Hypoglycemia Protocol Stop: 09/15/20 02:19 Enoxaparin Sodium (Enoxaparin Inj 40 Mg/0.4 Ml Syr) 40 mg SQ Q12 [facility] Stop: 09/15/20 08:59 Last Admin: 08/23/20 08:27 Dose: 40 mg Documented by: Famotidine (Famotidine 20 Mg Tab) 20 mg PO BID [facility] Stop: 09/16/20 08:59 Last Admin: 08/23/20 08:26 Dose: 20 mg Documented by: Glucagon (Glucagon For Inj 1 Mg Vial) 1 mg SQ UD PRN; Protocol PRN Reason: Hypoglycemia Protocol Stop: 09/15/20 02:19 Glucose (Glucose 10 Tabs/Tube) 4 - 8 tabs PO UD PRN; Protocol PRN Reason: Hypoglycemia Protocol Stop: 09/15/20 02:19 Glucose (Glucose 40% Gel 15 Gm Tube) 15 - 30 gm PO UD PRN; Protocol PRN Reason: Hypoglycemia Protocol Stop: 09/15/20 02:19 Guaifenesin (Guaifenesin 600 Mg Tabcr) 1,200 mg PO Q12 [facility] Stop: 09/18/20 20:59 Last Admin: 08/23/20 08:24 Dose: 1,200 mg Documented by: Insulin Aspart (Insulin Aspart 100 Units/Ml 3 Ml Pen) 0 units SC ACHS [facility] Stop: 09/15/20 16:29 Last Admin: 08/22/20 20:37 Dose: 9 units Documented by: Insulin Glargine (Insulin Glargine Solostar 100 Units/Ml 3 Ml Pen) 20 units SC HS [facility] Stop: 09/18/20 20:59 Last Admin: 08/22/20 20:36 Dose: 20 units Documented by: Insulin Glargine (Insulin Glargine Solostar 100 Units/Ml 3 Ml Pen) 25 units SC QAM [facility] Stop: 09/19/20 08:59 Last Admin: 08/22/20 09:40 Dose: 25 units Documented by: Ipratropium [place] (Ipratropium [place] Hfa Inhaler) 1 puffs INH Q4R PRN PRN Reason: Shortness Of Breath Or Wheezing Stop: 09/21/20 13:19 Melatonin (Melatonin 3 Mg Tab) 3 mg PO HS [facility] Stop: 09/17/20 20:59 Last Admin: 08/22/20 20:53 Dose: 3 mg Documented by: Miscellaneous (Carbohydrates For Hypoglycemia ) 15 - 30 gm PO UD PRN PRN Reason: Hypoglycemia Protocol Stop: 09/15/20 02:19 Nystatin (Nystatin Susp 500,000 U/5 Ml Udc) 5 ml PO QID [facility] Stop: 08/27/20 20:59 Last Admin: 08/23/20 08:26 Dose: 5 ml Documented by: Potassium Chloride (Potassium Chloride Crtab 20 Meq Tabcr) 20 meq PO TID [facility] Stop: 09/21/20 13:59 Last Admin: 08/23/20 08:25 Dose: 20 meq Documented by: Sodium Chloride (Sodium Chloride 0.65% Na Soln 45 Ml ([place])) 1 sprays NA PRN PRN PRN Reason: Congestion Stop: 09/19/20 06:08 Last Admin: 08/20/20 06:15 Dose: 1 sprays Documented by: PG Care Time/CCT Total # of Minutes Spent Total Time Spent with Patient: Total time spent is greater than 50% in coordination of care (as documented) at patient's floor/unit and/or counseling patient: Coding Level of Care Code 41554 Subseq Hosp Care Lvl 3 Diagnoses Pneumonia due to 2019 novel coronavirus U07.1; J12.82 Acute respiratory failure with hypoxia J96.01 Diabetes mellitus type 2, uncontrolled E11.65 Glycemic state: with hyperglycemia Pancytopenia D61.818 Hypomagnesemia E83.42 Hypokalemia E87.6 Hypophosphatemia E83.39 Anxiety F41.9 Hepatosplenomegaly R16.2 B12 deficiency E53.8 Candidiasis of mouth and esophagus B37.81; B37.0 DVT prophylaxis Z29.9 (1) Diabetes mellitus type 2, uncontrolled Glycemic state: with hyperglycemia Qualified Code(s): E11.65 - Type 2 diabetes mellitus with hyperglycemia
[2020-08-23] MEDS: MELATONIN 3 MG TAB PO SCH (21:43)
[2020-08-23] MEDS: busPIRone 5 MG TAB PO SCH (21:45)
[2020-08-24] MEDS: NYSTATIN SUSP 500,000 U/5 ML UDC PO SCH ×2 (08:45→12:39)
[2020-08-24] MEDS: POTASSIUM CHLORIDE CRTAB 20 MEQ TABCR PO SCH (08:46)
[2020-08-24] MEDS: INSULIN ASPART 100 UNITS/ML 3 ML PEN SC SCH ×2 (08:58→12:37)
[2020-08-24] MEDS: INSULIN GLARGINE SOLOSTAR 100 UNITS/ML 3 ML PEN SC SCH (08:58)
[2020-08-24] MEDS: CYANOCOBALAMIN 500 MCG TABLET (VITAMIN B-12) PO SCH (09:29)
[2020-08-24] MEDS: dexAMETHasone 4 MG TAB PO SCH (09:29)
[2020-08-24] MEDS: guaiFENesin 600 MG TABCR PO SCH (09:31)
[2020-08-24] MEDS: ENOXAPARIN INJ 40 MG/0.4 ML SYR SQ SCH (09:31)
[2020-08-24] MEDS: FAMOTIDINE 20 MG TAB PO SCH (09:32)
--- NOTE | 2020-08-26 07:34 | Discharge Summary ---
Date of Service August 24, 2020 Admission HPI Per Admitting Provider 50yo female with Covid-19. Sx began 8 days ago - body aches, dry cough, SOB, nausea and diarrhea. Improved but started worsening again 2 days ago Some CP and abdominal pain No loss of taste or smell Concerned because her pulse ox at home was 92% Pulse ox has been acceptable here No additional complaints. She is quite anxious, concerned that she "is going to tonight" Principal Diagnosis COVID 19 pneumonia with acute hypoxic respiratory failure Discharge Exam Constitutional WD/WN, vitals as above + overweight; no acute distress Neck trachea midline, no thyromegaly Respiratory normal respiratory effort, lungs clear to auscultation Cardiovascular Rate/Rhythm: regular rate and regular rhythm Heart Sounds: normal S1 and normal S2; no murmur Vessels: no JVD Extremities: normal capillary refill; no edema Gastrointestinal (Abdomen) normal bowel sounds, soft, nontender, no hepatosplenomegaly Musculoskeletal no cyanosis or clubbing, extremities motor strength 5/5 Skin no rashes, warm and dry Neurologic patellar DTR's 2+ bilat, sensation intact and PERRL, EOMI, accommodation nl, no face palsy, no dysarthria Psychiatric Orientation: alert and oriented x 3 Affect: + anxious affect Lymphatic no cervical or axillary lymphadenopathy Discharge Data Allergies Allergy/AdvReac Type Severity Reaction Status Date / Time No Known Allergies Allergy Verified 08/15/20 23:57 Consultations 08/16/20 00:06 ED Decision to Admit Stat Ordered Studies 08/15/20 20:33 CT angio chest PE protocol Urgent Diabetes Follow up Diabetes Follow-up Needed for HgbA1c >9%,Newly Diagnosed Diabetes Hospital Course (1) Pneumonia due to 2019 novel coronavirus: down to 3L today, feels great, so much better than she was a few days ago 2 step showed that she needs 3L at rest and 6L on exertion despite needing the 6L she felt fine when exerting herself and she recovered very quickly when she would sit down she said she will not be doing much or walking far at home, here family will help her a lot, won't be alone Continue decadron 6mg daily x 10 days - today is day #8 so she will need two more days instructed her to stay well nourished, well hydrated, well rested would anticipate her needing oxygen for another 7-10 days she should follow up with Michela Rush for a walking oxygen test in the office she is no longer contagious, she does NOT need to be quarantined Of note - CTA at time of admission negative for PE. (2) Acute respiratory failure with hypoxia: 2nd COVID-19 pneumonia. procalcitonin 08/20 is negative No evidence of complicating CHF or PE. Dimer noted; again CTA chest at admission neg for PE. stable on 3L NC today, no dyspnea, no cough, lungs clear on exam no tachypnea she required 3L at rest and 6L on exertion with her 2 step she feels fine going home with this amount, anticipate her oxygen needs improving over the next 7-10 days as her lungs recover (3) Diabetes mellitus type 2, uncontrolled: new diagnosis but was dx with pre-DM about 2-3 years ago DM education consult appreciated HBA1c was 11.0 prescribed her Metformin 500mg BID on discharge prescribed her Basaglar 25units every morning as well gave her a glucometer and test strips she called into the hospital on 08/25 very distraught because she could not get the meter to work, tried 10 times she wasted her first Lantus dose and was nervous about trying again she said that the Basaglar was non-formulary through her insurance I called her pharmacy and they said that the insurance would not give an alternative to the Basaglar I spoke with the patient over the phone, she was incredibly anxious, felt like she could not manage the insulin she just wanted to take Metformin told her to follow strict low carbohydrate diet, no sweets, follow up with PCP this week, could likely increase metformin to 1000 BID if she tolerates the 500 discussed that there are other options like Trulicity and other PO medications (4) Pancytopenia: WBC count up to 6 Hb stable at 11 Platelets 212k likely 2nd to COVID-19 infection TSH, folate wnl b12 low-normal -- replace (5) Hypomagnesemia: replaced and resolved (6) Hypokalemia: up to 3.6, continue 20mEq daily on discharge (7) Hypophosphatemia: stop oral K-phos neutral phos normal on 08/22 (8) Anxiety: buspar scheduled at HS due to significant night-time anxiety leading to insomnia melatonin HS prn continue the Buspar on discharge, lots of anxiety around her disease (9) Hepatosplenomegaly: as seen on imaging could be 2nd to COVID-19 infection could be primary liver disease ultimately will need dedicated abd u/s but this can be done as outpatient when virus is resolved recent ast/alt were wnl recent alk phos nearly normal (10) B12 deficiency: started oral B12 -- 1000mcg daily level was 289 (11) Candidiasis of mouth and esophagus: nystatin 5cc ac/hs swish/spit (12) DVT prophylaxis: due to higher risk of VTE with COVID - continue lovenox 40mg BID Total Time Total Time Spent Total Time Spent (In Minutes): 45 Total Time Includes: Examination of the Patient, Discharge Planning and Medication Reconciliation Discharge Plan Discharge Items Patient Disposition: Home - Self-Care Reason For Visit: HYPOKALEMIA, HYPOMAGNESEMIA, COVID-19 + Discharge Diagnosis: COVID 19 pneumonia Acute hypoxic respiratory failure Condition on Discharge: Good Goals: complete dexamethasone continue with oxygen, slowly wean down Activity: Resume your previous activity Driving/Machine Use: no driving until off oxygen Weightbearing: Full weightbearing Non-emergency contact: Primary Care Provider Call non-emergency contact if: you have any medication questions, your symptoms worsen and you have a fever Follow-up/Referrals: Michela Rush CRNP [Primary Care Provider] - 08/30/20 1:40 pm (one week Appointment will be a [facility] appointment with Dr. Paredes) Diet: Carb Consistent or DM2 Addtl Attending Provider Instructions: Medications: - DEXAMETHASONE: 6mg daily for two more days, start tomorrow morning - BUSPAR: take as needed twice a day if you have anxiety, can take 5mg at night to help you sleep if you have anxiety would not expect you to take staff midwife/apprenticeship director, just while you are recovering from COVID and have more anxiety related to your illness - POTASSIUM: 20mEq daily to help keep potassium normal - VITAMIN B12: found to be low on testing, continue 1000mcg daily, can obtain over the counter - METFORMIN: recommend taking this for diabetes type II, this is an initial dose, could likely use higher dose at 1000mg twice a day but PCP can titrate you up to this - BASAGLAR: 25 units of insulin every morning, hopefully you won't need this staff midwife/apprenticeship director, might be able to get rid of it if you lose weight, exercise, follow low carbohydrate diet OXYGEN: you need 3L at rest and should increase to 6L whenever you plan to exert yourself COVID 19 pneumonia, acute hypoxic respiratory failure you are recovering from peak illness that occurred Thursday/Thursday when you were up to 10L of oxygen you have steadily improved over the past three days, down to 3L at rest you require more oxygen when you exert yourself, 6L, this can be normal as your lungs are still recovering I recommend that you continue to get rest at home, family can help you recover stay well nourished, well hydrated recommend that you try to sit upright as much as possible, take short walks (with oxygen up to 6L) anticipate that over the next 7-10 days your oxygen requirements will decrease and you will likely be off oxygen by that time follow up with Michela Rush in the office at the end of next week, can do a walking oxygen test in office to test your progress Diabetes type II new diagnosis, you will need to follow a low carbohydrate diet will start you on Metformin 500mg twice a day continue with Basaglar insulin 25 units every morning check sugars twice a day to monitor and you can share results with Michela Rush, check in the morning before eating and in the afternoon Pending Studies at Discharge: No Stand-Alone Forms: My [facility], Smoking Cessation Medications and DC Order Prescriptions: New buspirone 5 mg Tablet 5 mg PO HS 14 Days Qty: 14 RF: 0 buspirone 5 mg Tablet 5 mg PO BID PRN (Reason: anxiety) 14 Days Qty: 28 RF: 0 potassium chloride [Klor-Con M20] 20 mEq Tablet,Er Particles/Crystals 20 meq PO DAILY 30 Days Qty: 30 RF: 0 cyanocobalamin (vitamin B-12) 500 mcg Tablet 1,000 mcg PO QAM 30 Days Qty: 60 RF: 0 metformin 500 mg tablet 500 mg PO BID Qty: 60 RF: 3 (DME) OneTouch Verio test strips Strip See Rx Instructions .ROUTE .MEDSUPPLY Qty: 100 RF: 2 (DME) lancets [OneTouch Delica Lancets] 33 gauge misc See Rx Instructions .ROUTE .MEDSUPPLY Qty: 100 RF: 2 Continued ibuprofen 200 mg Tablet 400 mg PO Q6H PRN (Reason: FEVER/PAIN) RF: 0 Discontinued azithromycin 250 mg tablet 250 mg PO DIRECTED RF: 0 Discharge Orders: Discharge Order (Routine); Ordered 08/24/20 Ordered By: Ray Plascencia/Other Patient Handouts: Using Oxygen Safely, Discharge Instructions for ..., Traveling with Oxygen, Using an Oxygen Tank at Home Admission Data Admit Date/Time: 08/16/20 16:22 Attending Provider: Ray Herrmann Admit Provider: Sharon Owens Primary Care Provider: Michela Rush Other Providers: Sharon Owens Other Interventions: Discharge Summary Assessment (RN) Last Done: 08/24/20 13:30 Coding Level of Care Code D/C Day Management >30 mins Diagnoses Pneumonia due to 2019 novel coronavirus U07.1; J12.82 Acute respiratory failure with hypoxia J96.01 Diabetes mellitus type 2, uncontrolled E11.65 Glycemic state: with hyperglycemia Pancytopenia D61.818 Hypomagnesemia E83.42 Hypokalemia E87.6 Hypophosphatemia E83.39 Anxiety F41.9 Hepatosplenomegaly R16.2 B12 deficiency E53.8 Candidiasis of mouth and esophagus B37.81; B37.0 DVT prophylaxis Z29.9
== END 2020-08-24 14:43 | disposition home or self-care (01) ==
LOC: ED 19:00 → 3N 19:00 → SUATTDRO 08-16 00:54 → 3N 08-16 01:55 → SUATTDRO 08-16 16:22 → 2S 08-20 09:01